=== PATIENT | female | born 1940 | race Caucasian/White ===

== ENCOUNTER 2020-01-24 08:51 | Inpatient (IN) | payer MEDICARE, MEDICAID, SELFPAY ==
[2020-01-24] VITALS (13 sets, daily range): BP systolic 93–166; BP diastolic 51–80; PULSE 47–69; RESP 12–23; TEMP 35.8–37.1; O2SAT 92–98; BMI 34.6
--- NOTE | ~2020-01-24 | XR_ITS ---
EXAMINATION: XR chest 2V DATE: 01/24/2020 09:58 INDICATION: Transient alteration of awareness. TECHNIQUE: Frontal and lateral views of the chest were obtained. COMPARISON: Chest 2 views 07/02/2019, CT abdomen and pelvis 06/18/2019 FINDINGS: There is chronic marked elevation of right hemidiaphragm. There is mild atelectasis at the lung bases. No pleural effusion or pneumothorax. The heart size is normal. There are multiple old hea led left rib fractures. There are changes of anterior and posterior fusion procedures in lumbar spine . There is focal kyphosis at thoracolumbar junction. IMPRESSION: 1. Mild atelectasis at the lung bases. 2. Chronic marked elevation of right hemidiaphragm. Reviewed, dictated and finalized at location A. WAY RADIO INSTALLER
--- NOTE | ~2020-01-24 | US_ITS ---
US renal BI 01/26/2020 13:30 Procedure: Realtime transabdominal ultrasound of the kidneys and bladder. Indication: Chronic UTI Comparison: Ultrasound dated 02/28/2008 Findings: Renal echotexture is normal bilaterally without hydronephrosis, contour deforming mass or r enal calculus. The right kidney measures 11.4 cm and left kidney measures 11.3 cm. Bladder wall is t hickened measuring 6.6 mm. Impression: 1: Bladder wall thickening, suspicious for cystitis. Correlate with urinalysis. Reviewed, dictated and finalized at location B. ATRICIAN Impression: 1: Bladder wall thickening, suspicious for cystitis. Correlate with urinalysis.
--- NOTE | ~2020-01-24 | MR_ITS ---
EXAMINATION: MR brain/brain stem wo/w con DATE: 01/26/2020 13:29 INDICATION: Aphasia. TECHNIQUE: Magnetic resonance imaging (MRI) of the brain and brainstem was performed without and with 17 mL MultiHance intravenous contrast. Sequences included sagittal and axial T1-weighted FSE, axial diffusion-weighted FS EPI, axial T2*-weighted GRE, axial T2-weighted FLAIR Propeller, and axial T2-we ighted Propeller. Postcontrast sequences included axial and coronal T1-weighted FSE. Apparent diffusi on coefficient (ADC) maps were created. COMPARISON: Brain MRI 07/26/2011, head CT 01/24/2020 FINDINGS: There are scattered areas of nonspecific increased T2-weighted signal intensity in the cere bral white matter. There is no intracranial hemorrhage, acute infarction, or abnormal intracranial ma ss lesion. The ventricles are normal in size. The paranasal sinuses are clear. There are likely wiley es of ocular lens replacement surgeries. The mastoid air cells are normal. IMPRESSION: 1. Mild nonspecific cerebral white matter disease, which likely represents chronic small vessel ische geri disease, worsened from 07/26/2011. Reviewed, dictated and finalized at location A. LINE GAUGER IMPRESSION: 1. Mild nonspecific cerebral white matter disease, which likely represents sales development manager jade small vessel ischemic disease, worsened from 07/26/2011.
--- NOTE | ~2020-01-24 | CT_ITS ---
EXAMINATION: CT brain wo con DATE: 01/24/2020 09:25 INDICATION: Altered mental status. TECHNIQUE: Computed tomography (CT) of the head was performed without intravenous contrast. The mA wa s adjusted according to patient size. Iterative reconstruction technique was employed. The dose-lengt h product was 681.00 mGy-cm. COMPARISON: Head CT 06/02/2019 FINDINGS: There are scattered areas of low attenuation in the cerebral white matter. There is no intr acranial hemorrhage, acute infarction, or abnormal intracranial mass lesion. The ventricles are roshni l in size. There is mild mucosal thickening in the ethmoid sinuses. There are likely changes of ocula r lens replacement surgeries. The mastoid air cells are normal. IMPRESSION: 1. Unchanged mild nonspecific cerebral white matter disease, which likely represents chronic small ve ssel ischemic disease. Reviewed, dictated and finalized at location A. ESTRUCTIVE TESTER IMPRESSION: 1. Unchanged mild nonspecific cerebral white matter disease, which likely repre sents chronic small vessel ischemic disease.
--- NOTE | 2020-01-24 09:00 | ECG_ITS ---
Measurements Intervals [place] Rate: 51 P: 75 NC: 189 QRS: -34 QRSD: 93 T: 14 QT: 498 QTc: 461 Interpretive Statements SINUS BRADYCARDIA LEFT AXIS DEVIATION LOW QRS VOLTAGE IN PRECORDIAL LEADS POOR R WAVE PROGRESSION, ANTERIOR LEADS INFERIOR INFARCT, AGE INDETERMINATE BASELINE WANDER- I, II, AVR, AVL, AVF, V1-V6 ABNORMAL ECG Electronically Signed On 01-24-2020 9:34:42 MILK HANDLER by Kashmir Don D.O.
[2020-01-24 09:15] LABS: Basophils Percent Auto 0.5 % (0.2-1.2); Eosinophils Absolute Auto 0.1 K/mm3 (0-0.3); Eosinophils Percent Auto 1.8 % (0-4.4); Hematocrit 39.3 % (37.0-47.0); Hemoglobin 12.1 g/dL (12.0-15.0); Immature Granulocyte Absolute 0.01 K/mm3 (0.00-0.031); Immature Granulocyte Percent A 0.2 % (0-0.5); Lymphocytes Absolute Auto 0.95 K/mm3 (0.9-3.2); Lymphocytes Percent Auto 15.5 % (18.3-44.2); Mean Corpuscular HGB Conc 30.8 g/dl (32-36); Mean Corpuscular Volume 97.3 fl (80-100); Mean Platelet Volume 12.5 fl (7.4-10.4); Monocytes Absolute Auto 0.6 K/mm3 (0.1-0.6); Monocytes Percent Auto 9.3 % (2.6-8.5); Neutrophils Absolute Auto 4.5 K/mm3 (1.3-6.7); Neutrophils Percent Auto 72.7 % (45.5-73.1); Platelet Count Result 103 k/mm3 (150-375); Red Blood Count 4.04 M/mm3 (4.2-5.4); Red Cell Distribution Width 13.2 % (11.5-14.5); White Blood Count 6.1 K/mm3 (4.5-10.0)
[2020-01-24] MEDS: SODIUM CHLORIDE 0.9% IV 500 ML 999 ML IV CONT (09:24)
[2020-01-24 09:38] LABS: Troponin I < 0.012 ng/mL (0.000-0.034)
[2020-01-24 09:40] LABS: Add Urine Microscopic? YES; Appearance Urine Cloudy (Clear); Bacteria Urine Trace /hpf; Bilirubin Urine Negative (Negative); Blood Urine Negative (Negative); Color Urine Yellow (Yellow); Glucose Urine UA Negative (Negative); Ketones Urine Trace mg/dL (Negative); Leukocyte Esterase Ur 2+ LEU/UL (Negative); Nitrate Urine Negative (Negative); Protein Urine Negative (Negative); RBC Urine 0-2 /hpf (0-2); Specific Grav Ur 1.012 (1.001-1.035); Squamous Epithelial Cell Urine Rare /hpf (Few); WBC Urine 51-75 /hpf
[2020-01-24 09:40] LABS: Lactic Acid Reflex 1.4 mmol/L (0.7-2.1)
[2020-01-24 09:44] LABS: Alanine Aminotransferase 7 U/L (4-35); Albumin Level 3.8 g/dL (3.5-5.1); Alkaline Phosphatase 85 U/L (38-126); Aspartate Amino Transferase 16 U/L (14-36); Bilirubin,Total 0.6 mg/dL (0.2-1.3); Blood Urea Nitrogen 30 mg/dL (7-17); Calcium 8.8 mg/dL (8.4-10.2); Carbon Dioxide 30 mmol/L (22-30); Chloride 105 mmol/L (98-107); Estimated Glomerular Filt Rate 54; Glucose 158 mg/dL (65-105); Potassium 5.1 mmol/L (3.4-5.0); Sodium 141 mmol/L (137-145)
--- NOTE | 2020-01-24 09:49 | ED.AMS ---
HPI - Altered Mental Status General Chief Complaint: Altered Mental Status Stated Complaint: not feeling well Time Seen by Provider: 01/24/20 09:02 Source: patient Mode of arrival: ambulatory Limitations: no limitations History of Present Illness HPI narrative: Patient is a 79-year-old female who presents to emergency department for evaluation of weakness from group home per EMS patient was lethargic and slumped over EMS was contacted patient on arrival to emergency department notes mild headache and weakness is alert and oriented to person place and reason for being in the emergency department denies recent illness or falls. Related Data Home Medications Medication Instructions Recorded Confirmed Unable to Obtain Home Medications 01/24/20 01/24/20 Allergies Allergy/AdvReac Type Severity Reaction Status Date / Time No Known Allergies Allergy Unverified 01/24/20 08:57 Review of Systems Review of Systems: All systems reviewed & are unremarkable except as noted in HPI and below PMFSH Past Medical History Medical History (Updated 01/24/20 @ 10:58 by Brady Joyce PA-C) Dementia Diabetes Family History Family History (Updated 08/31/11 @ 21:53 by DOCTOR UNKNOWN) Other Depression Diabetes mellitus Family history of elevated blood lipids Family history of mental disorder Hypertension Social History Social History Smoking status: Never smoker Alcohol intake: never Exam Narrative: Exam Narrative: GENERAL: Ill-appearing, well-nourished, and in no acute distress. HEAD: Normocephalic, atraumatic. EYES: PERRLA and EOMI. ENT: Nares clear, no rhinorrhea or epistaxis. Mucous membranes dry. Oropharynx without tonsillar hypertrophy exudate or other lesions. NECK: Supple. No adenopathy or masses. CHEST: Clear to auscultation. No respiratory distress. No wheezes rales or rhonchi HEART: Regular rate and rhythm. No murmur heard. Normal peripheral pulses. ABDOMEN: Soft, nontender, nondistended EXTREMITIES: Normal range of motion. 1+ edema to the lower extremities SKIN: Warm, dry, no rash. NEURO: Patient moves all extremities and follows commands. Alert and oriented person place and reason for being in the emergency department. Cranial nerves II through XII grossly intact PSYCH: Normal affect. Course Course Emergency Course: Patient aware of case findings treatment plan and diagnosis Consultations Consultation #1: Discussed case with hospitalist who is agreed to accept the patient Date: 01/24/20 Vital Signs Vital signs: Vital Signs Temperature 97 F L 01/24/20 08:50 Pulse Rate 52 L 01/24/20 08:50 Respiratory Rate 23 H 01/24/20 08:50 Blood Pressure 93/51 L 01/24/20 08:50 Pulse Oximetry 95 01/24/20 08:50 Temperature 97 F L 01/24/20 08:50 Pulse Rate 54 L 01/24/20 09:25 Respiratory Rate 18 01/24/20 09:25 Blood Pressure 111/53 L 01/24/20 09:25 Pulse Oximetry 94 01/24/20 09:25 MDM - Altered Mental Status MDM Narrative Medical decision making narrative: Patient will be placed in hospital with likely dehydration and urinary tract infection as the etiology of her symptoms resting comfortably in the room in no distress was hydrated Lab Data Result diagrams: 01/24/20 09:10 01/24/20 09:10 Labs: Lab Results 01/24/20 01/24/20 01/24/20 Range/Units 09:10 09:10 09:10 WBC 6.1 (4.5-10.0) K/mm3 RBC 4.04 L (4.2-5.4) M/mm3 Hgb 12.1 (12.0-15.0) g/dL Hct 39.3 (37.0-47.0) % MCV 97.3 (80-100) fl MCH 30.0 (26-34) pg MCHC 30.8 L (32-36) g/dl RDW 13.2 (11.5-14.5) % Plt Count 103 L (150-375) k/mm3 MPV 12.5 H (7.4-10.4) fl Immature Gran % (Auto) 0.2 (0-0.5) % Neut % (Auto) 72.7 (45.5-73.1) % Lymph % (Auto) 15.5 L (18.3-44.2) % [place] % (Auto) 9.3 H (2.6-8.5) % Eos % (Auto) 1.8 (0-4.4) % Baso % (Auto) 0.5 (0.2
[2020-01-24] MEDS: SODIUM CHLORIDE 0.9% IV 1,000 ML 999 ML IV CONT (10:07)
--- NOTE | 2020-01-24 12:27 | ADMGEN ---
This patient, Christine Munoz, was admitted to Medical Room 344-01. Patient oriented to hospital policies and general routines including ID bracelet, bed and alarms, visiting hours, pain management, procedures, bathroom and other care routines, personal items, smoking policy, room service/diet, and visiting hours. Valuables list has been completed. Information on how to activate the Rapid Response Team has been discussed. Patient are encouraged to report perceived risks to care and to ask questions if they do not understand what they are told or what they should do.
[2020-01-24 12:55] LABS: Glucose Point of Care 113 (65-105)
[2020-01-24] MEDS: LACTATED RINGERS 1,000 ML 125 ML IV CONT ×2 (13:31→22:31)
[2020-01-24 17:02] LABS: Glucose Point of Care 175 (65-105)
--- NOTE | 2020-01-24 21:04 | PM.IMHP ---
H&P: HPI History of Present Illness Chief complaint: Dehydration/urinary tract infection Narrative: Christine Munoz is a 79 year old female who has had multiple UTIs. She has drug-resistant UTIs. She had VRE this past admission which was June 18, 2019. The patient became very weak today at [facility]. This is where she resides. She became month or ache take and slumped over. EMS was activated. Patient was complaining of a headache and weakness. She is alert orientated to person and place when she came to the emergency room. Patient was found to have UTI again and was placed on Primaxin. She sees Dr. Haynes as her urologist for these frequent UTIs. The patient is currently alert and orientated x3. Date of service is 01/24/2020 patient's blood sugar was also 54 initially so possibly her blood pressure dropped low causing her to have episode where she became lethargic. Review of Systems Review of Systems: Narrative: Patient is complaining of lower back pain. All systems reviewed & are unremarkable except as noted in HPI and below Constitutional: Constitutional: Reports as per HPI and Reports no additional constitutional complaints Eyes: Eyes: Reports as per HPI and Reports no additional eye complaints ENT: Reports system reviewed and no additional complaints, except as documented and Reports Normal hearing present Cardiovascular: Cardiovascular: Reports no additional cardiovascular complaints Respiratory: Respiratory: Reports no additional respiratory complaints and Reports no additional respiratory complaints Gastrointestinal: Gastrointestinal: Reports as per HPI and Reports no additional gastrointestinal complaints Musculoskeletal: Musculoskeletal: Reports no additional musculoskeletal complaints Integumentary/Breasts: Skin/Breast: Reports system reviewed and no additional complaints, except as docu and Reports as per HPI Neurologic: Reports system reviewed and no additional complaints, except as documented, Reports as per HPI and Reports Normal hearing present Psychiatric: Psychiatric: Reports no additional psychiatric complaints and Reports as per HPI Endocrine: Endocrine: Reports no additional endocrine complaints Hematologic/Lymphatic: Hematologic/Lymphatic: Reports no additional hematologic/lymphatic complaints Allergic/Immunologic: Allergic/Immunologic: Reports no additional allergic/immunologic complaints PMFSH Past Medical History Medical History (Updated 01/24/20 @ 21:30 by Michelle Salcedo NP) Constipation Degenerative disc disease Dementia Depression Diabetes Fibromyalgia HTN (hypertension) with goal to be determined Hyperlipidemia Macular degeneration Mitral valve prolapse Neuropathy Feet and hands Osteoporosis Parkinsons Surgical History Surgical History (Updated 01/24/20 @ 21:16 by Michelle Salcedo NP) H/O cardiac catheterization December 1999 reported as clear H/O hemorrhoidectomy H/O rectocele repair 2002 H/O: hysterectomy History of back surgery 5 surgeries from 02/11/1978 83. History of bilateral knee replacement History of bladder suspension procedure History of tonsillectomy Family History Family History (Updated 01/24/20 @ 21:18 by Michelle Salcedo NP) Mother Hypertension Diabetes mellitus Sibling Diabetes mellitus Renal failure Father Lung cancer Sibling Suicide Other Depression Family history of elevated blood lipids Family history of mental disorder Social History Social History (Updated 01/24/20 @ 21:19 by Michelle Salcedo NP) Social History: She resides at [facility]. 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 She is not qualified so far. She is estranged from her 3 children. 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 No alcohol no illicit drugs. Is . Lifelong nonsmoker. Smoking status: Never smoker Alcohol intake: never Substance us
[2020-01-24 22:30] LABS: Glucose Point of Care 239 (65-105)
[2020-01-24] MEDS: CLONAZEPAM 0.5 MG TAB 1 MG PO (22:37)
[2020-01-24] MEDS: GABAPENTIN 400 MG CAPSULE 800 MG PO (22:38)
[2020-01-24] MEDS: QUEtiapine FUMARATE 25 MG TABLET 50 MG PO (22:38)
[2020-01-24] MEDS: TIZANIDINE HCL 4 MG TABLET PO (22:38)
[2020-01-24] MEDS: QUEtiapine FUMARATE 100 MG TABLET 200 MG PO (22:38)
[2020-01-24] MEDS: INSULIN GLARGINE (*BKC) 100 UNITS/ML 60 UNITS SUB-Q (22:39)
[2020-01-25] VITALS (9 sets, daily range): BP systolic 130–155; BP diastolic 50–70; PULSE 56–65; RESP 14–16; TEMP 36.3–37.1; O2SAT 94–95
[2020-01-25] MEDS: FAMOTIDINE 20 MG/2 ML VIAL IV PUSH ×2 (00:24→08:29)
[2020-01-25 06:14] LABS: Basophils Percent Auto 0.2 % (0.2-1.2); Eosinophils Absolute Auto 0.1 K/mm3 (0-0.3); Eosinophils Percent Auto 1.6 % (0-4.4); Hematocrit 35.3 % (37.0-47.0); Hemoglobin 10.8 g/dL (12.0-15.0); Immature Granulocyte Absolute 0.02 K/mm3 (0.00-0.031); Immature Granulocyte Percent A 0.5 % (0-0.5); Lymphocytes Absolute Auto 0.74 K/mm3 (0.9-3.2); Lymphocytes Percent Auto 16.8 % (18.3-44.2); Mean Corpuscular HGB Conc 30.6 g/dl (32-36); Mean Corpuscular Hemoglobin 29.8 pg (26-34); Mean Corpuscular Volume 97.5 fl (80-100); Mean Platelet Volume 12.6 fl (7.4-10.4); Monocytes Absolute Auto 0.5 K/mm3 (0.1-0.6); Monocytes Percent Auto 11.6 % (2.6-8.5); Neutrophils Absolute Auto 3.1 K/mm3 (1.3-6.7); Neutrophils Percent Auto 69.3 % (45.5-73.1); Platelet Count Result 87 k/mm3 (150-375); Red Blood Count 3.62 M/mm3 (4.2-5.4); Red Cell Distribution Width 13.2 % (11.5-14.5); White Blood Count 4.4 K/mm3 (4.5-10.0)
[2020-01-25 06:31] LABS: Alanine Aminotransferase 11 U/L (4-35); Albumin Level 3.1 g/dL (3.5-5.1); Alkaline Phosphatase 67 U/L (38-126); Aspartate Amino Transferase 13 U/L (14-36); Bilirubin,Total 0.5 mg/dL (0.2-1.3); Blood Urea Nitrogen 21 mg/dL (7-17); Calcium 8.2 mg/dL (8.4-10.2); Carbon Dioxide 30 mmol/L (22-30); Chloride 108 mmol/L (98-107); Estimated CRCL calculation 44 ml/min; Estimated Glomerular Filt Rate 54; Glucose 117 mg/dL (65-105); Magnesium 1.6 mg/dL (1.6-2.3); Potassium 4.2 mmol/L (3.4-5.0); Sodium 142 mmol/L (137-145)
[2020-01-25 07:45] LABS: Glucose Point of Care 115 (65-105)
[2020-01-25] MEDS: LACTATED RINGERS 1,000 ML 125 ML IV CONT (08:28)
[2020-01-25] MEDS: CHOLECALCIFEROL 1,000 UNIT TABLET 2000 UNITS PO (08:29)
[2020-01-25] MEDS: DULOXETINE 60 MG CAPSULE.DR PO ×2 (08:29→16:10)
[2020-01-25] MEDS: CLONAZEPAM 0.5 MG TAB PO ×2 (08:29→16:13)
[2020-01-25] MEDS: ASPIRIN 81 MG CHEWABLE TABLET PO (08:29)
[2020-01-25] MEDS: DULOXETINE HCL 30 MG CAPSULE.DR PO (08:29)
[2020-01-25] MEDS: RIVASTIGMINE TARTRATE 1.5 MG CAPSULE 4.5 MG PO ×2 (08:29→16:12)
[2020-01-25] MEDS: hydroCHLOROthiazide 12.5 MG CAPSULE PO (08:30)
[2020-01-25] MEDS: FUROSEMIDE 20 MG TABLET PO (08:30)
[2020-01-25] MEDS: POTASSIUM CHLORIDE 10 MEQ TABLET.ER PO (08:30)
[2020-01-25] MEDS: LUBIPROSTONE 24 MCG CAPSULE PO ×2 (08:30→16:11)
[2020-01-25] MEDS: PANTOPRAZOLE 40 MG TABLET PO ×2 (08:30→16:11)
[2020-01-25] MEDS: MIRABEGRON 25 MG ER TABLET PO (08:30)
[2020-01-25] MEDS: POLYSACCHARIDE IRON COMPLEX 150 MG CAPSULE PO (08:30)
[2020-01-25] MEDS: lisinopriL 10 MG TABLET PO (08:30)
[2020-01-25] MEDS: CARBIDOPA/LEVODOPA 25/100 MG TABLET 3 TABLET PO ×4 (08:31→20:02)
[2020-01-25] MEDS: GABAPENTIN 300 MG CAPSULE PO ×2 (08:31→16:10)
[2020-01-25] MEDS: carvediloL 12.5 MG TABLET PO ×2 (08:31→16:11)
[2020-01-25 08:39] LABS: Hemoglobin A1C 7.4 % (<5.7)
--- NOTE | 2020-01-25 11:05 | PHAR ---
Home medication identified. Nuplazid 34mg capsule and returned to nurse 3 medical unit
[2020-01-25 12:14] LABS: Glucose Point of Care 90 (65-105)
[2020-01-25 16:17] LABS: Glucose Point of Care 118 (65-105)
--- NOTE | 2020-01-25 16:23 | P.PNIM_ITS ---
Progress Note: A&P Assessment and Plan (1) Altered mental status: Code(s): R41.82 - Altered mental status, unspecified Status: Acute Assessment and Plan: * The pt had an episode of weakness, lethargy, and was slumped over at the senior care yesterday which prompted activation of EMS * She is now alert and oriented x3 with no focal deficits * AMS is suspected to be due to UTI, dehydration, and hypoglycemia as blood sugar was reported to be in the 50s which is superimposed on baseline Parkinson's dementia * CT head wo contrast in the ED revealed unchanged, mild nonspecific cerebral white matter disease, suggestive of chronic small vessel ischemic disease without evidence of hemorrhage or ischemia * The pt endorses that she felt like she had an episode of what she describes as expressive aphasia immediately prior to the episode of lethargy. Will order MRI brain w and wo contrast. (2) Frequent UTI: Code(s): N39.0 - Urinary tract infection, site not specified Status: Acute Assessment and Plan: * The pt has a hx of recurrent UTIs with hx of VRE 06/20/19 * She is established with Dr. Haynes, urologist, who was consulted. Appreciate recommendations. * Urine cultures are pending * Pt is on imipenem/cilastatin, will de-escalate pending cultures as appropriate (3) Diabetes: Code(s): E11.9 - Type 2 diabetes mellitus without complications Status: Chronic Assessment and Plan: * Blood sugars reviewed and at target * ACHS * Continue glargine, will reduce by 20% * Continue SSI * Will continue to monitor (4) Parkinsons: Code(s): G20 - Parkinson's disease Status: Chronic Assessment and Plan: * Continue carbidopa-levodopa * Continue rivastigmine * Pimavanserin is non-formulary, will see if she can have this brought in * Continue nuplazid, pt was able to have her friend bring this in since it is non-formulary (5) Acute dehydration: Code(s): E86.0 - Dehydration Status: Acute Assessment and Plan: * Pt was dehydrated at presentation and received IV hydration * Pt is eating and drinking well * Will discontinue fluids and continue to monitor (6) Fibromyalgia: Code(s): M79.7 - Fibromyalgia Status: Chronic Assessment and Plan: * Continue with Zanaflex, [place], gabapentin, and tylenol (7) Depression: Code(s): F32.9 - Major depressive disorder, single episode, unspecified Status: Chronic Assessment and Plan: * The patient's mood is stable * Continue cymbalta and seroquel (8) Neuropathy: Code(s): G62.9 - Polyneuropathy, unspecified Status: Chronic Assessment and Plan: * Continue gabapentin (9) HTN (hypertension) with goal to be determined: Code(s): I10 - Essential (primary) hypertension Status: Chronic Assessment and Plan: * BP elevated overnight but has improved today * Continue lisinopril and hydrochlorothiazide * Continue to monitor (10) Diarrhea: Code(s): R19.7 - Diarrhea, unspecified Status: Acute Assessment and Plan: * The pt reports loose BM yesterday but denies BM today. She endorses a strong odor to the stool. She denies hematocheiza, melena, vomiting, nausea, and abdominal pain. * She reports that she was on antibiotics in the past month * She reports a hx of chronic diarrhea and is on loperamid
--- NOTE | 2020-01-25 16:23 | PM.IMPN ---
Progress Note: A&P Assessment and Plan (1) Altered mental status: Code(s): R41.82 - Altered mental status, unspecified Status: Acute Assessment and Plan: The pt had an episode of weakness, lethargy, and was slumped over at the half-way yesterday which prompted activation of EMS She is now alert and oriented x3 with no focal deficits AMS is suspected to be due to UTI, dehydration, and hypoglycemia as blood sugar was reported to be in the 50s which is superimposed on baseline Parkinson's dementia CT head wo contrast in the ED revealed unchanged, mild nonspecific cerebral white matter disease, suggestive of chronic small vessel ischemic disease without evidence of hemorrhage or ischemia The pt endorses that she felt like she had an episode of what she describes as expressive aphasia immediately prior to the episode of lethargy. Will order MRI brain w and wo contrast. (2) Frequent UTI: Code(s): N39.0 - Urinary tract infection, site not specified Status: Acute Assessment and Plan: The pt has a hx of recurrent UTIs with hx of VRE 06/20/19 She is established with Dr. Haynes, urologist, who was consulted. Appreciate recommendations. Urine cultures are pending Pt is on imipenem/cilastatin, will de-escalate pending cultures as appropriate (3) Diabetes: Code(s): E11.9 - Type 2 diabetes mellitus without complications Status: Chronic Assessment and Plan: Blood sugars reviewed and at target ACHS Continue glargine, will reduce by 20% Continue SSI Will continue to monitor (4) Parkinsons: Code(s): G20 - Parkinson's disease Status: Chronic Assessment and Plan: Continue carbidopa-levodopa Continue rivastigmine Pimavanserin is non-formulary, will see if she can have this brought in Continue nuplazid, pt was able to have her friend bring this in since it is non-formulary (5) Acute dehydration: Code(s): E86.0 - Dehydration Status: Acute Assessment and Plan: Pt was dehydrated at presentation and received IV hydration Pt is eating and drinking well Will discontinue fluids and continue to monitor (6) Fibromyalgia: Code(s): M79.7 - Fibromyalgia Status: Chronic Assessment and Plan: Continue with Zanaflex, [place], gabapentin, and tylenol (7) Depression: Code(s): F32.9 - Major depressive disorder, single episode, unspecified Status: Chronic Assessment and Plan: The patient's mood is stable Continue cymbalta and seroquel (8) Neuropathy: Code(s): G62.9 - Polyneuropathy, unspecified Status: Chronic Assessment and Plan: Continue gabapentin (9) HTN (hypertension) with goal to be determined: Code(s): I10 - Essential (primary) hypertension Status: Chronic Assessment and Plan: BP elevated overnight but has improved today Continue lisinopril and hydrochlorothiazide Continue to monitor (10) Diarrhea: Code(s): R19.7 - Diarrhea, unspecified Status: Acute Assessment and Plan: The pt reports loose BM yesterday but denies BM today. She endorses a strong odor to the stool. She denies hematocheiza, melena, vomiting, nausea, and abdominal pain. She reports that she was on antibiotics in the past month She reports a hx of chronic diarrhea and is on loperamide PRN and lactobacillus Will obtain stool cultures due to concern for malodor to stool Subjective Date/time seen: 01/25/20 16:23 Interval history: Mrs. Munoz is seen and examined at bedside. She reports that she is feeling much better today. She reports a 1 week hx of diarrhea with a bad odor. She denies hematochezia and melena. Her last BM was Sunday. She reports recent antibiotic therapy within the past month. She denies BM today. She also reports hx of dysuria for approximately 2 months with increased urinary
[2020-01-25] MEDS: CLONAZEPAM 0.5 MG TAB 1 MG PO (20:01)
[2020-01-25] MEDS: QUEtiapine FUMARATE 25 MG TABLET 50 MG PO (20:01)
[2020-01-25] MEDS: GABAPENTIN 400 MG CAPSULE 800 MG PO (20:02)
[2020-01-25] MEDS: QUEtiapine FUMARATE 100 MG TABLET 200 MG PO (20:02)
[2020-01-25] MEDS: INSULIN GLARGINE (*BKC) 100 UNITS/ML 48 UNITS SUB-Q (20:11)
[2020-01-25] MEDS: TIZANIDINE HCL 4 MG TABLET PO (20:14)
[2020-01-25 22:27] LABS: Glucose Point of Care 149 (65-105)
[2020-01-26] VITALS (9 sets, daily range): BP systolic 127–153; BP diastolic 58–73; PULSE 50–64; RESP 16–188; TEMP 36.1–36.7; O2SAT 92–100
[2020-01-26 05:47] LABS: Basophils Percent Auto 0.2 % (0.2-1.2); Eosinophils Absolute Auto 0.1 K/mm3 (0-0.3); Eosinophils Percent Auto 3.2 % (0-4.4); Hematocrit 35.4 % (37.0-47.0); Hemoglobin 11.1 g/dL (12.0-15.0); Lymphocytes Absolute Auto 0.68 K/mm3 (0.9-3.2); Lymphocytes Percent Auto 16.9 % (18.3-44.2); Mean Corpuscular HGB Conc 31.4 g/dl (32-36); Mean Corpuscular Hemoglobin 30.1 pg (26-34); Mean Corpuscular Volume 95.9 fl (80-100); Monocytes Absolute Auto 0.6 K/mm3 (0.1-0.6); Monocytes Percent Auto 14.1 % (2.6-8.5); Neutrophils Absolute Auto 2.6 K/mm3 (1.3-6.7); Neutrophils Percent Auto 65.6 % (45.5-73.1); Platelet Count Result 88 k/mm3 (150-375); Red Blood Count 3.69 M/mm3 (4.2-5.4); Red Cell Distribution Width 13.1 % (11.5-14.5)
[2020-01-26 05:59] LABS: Blood Urea Nitrogen 18 mg/dL (7-17); Calcium 8.3 mg/dL (8.4-10.2); Carbon Dioxide 30 mmol/L (22-30); Chloride 104 mmol/L (98-107); Estimated CRCL calculation 49 ml/min; Estimated Glomerular Filt Rate > 60; Glucose 119 mg/dL (65-105); Magnesium 1.6 mg/dL (1.6-2.3); Phosphorus 3.9 mg/dL (2.5-4.5); Potassium 3.8 mmol/L (3.4-5.0); Sodium 140 mmol/L (137-145)
--- NOTE | 2020-01-26 08:53 | WPDURCON ---
Assessment and Plan Assessment and plan (1) Frequent UTI: Code(s): N39.0 - Urinary tract infection, site not specified Status: Acute Assessment and Plan: Will obtain a GILBERT to rule out any anatomical abnormalities contributing. (2) Urinary tract infection: Code(s): N39.0 - Urinary tract infection, site not specified Status: Acute Assessment and Plan: Urine culture pending. Continue IV antibiotics, treat according to culture results. (3) Urinary hesitancy: Code(s): R39.11 - Hesitancy of micturition Status: Acute Assessment and Plan: Bladder scan post void to assess PVR and ensure urinary retention is not contributing. Urology Consult Note HPI Date Seen: 01/26/20 Requesting Physician: Kb Freeman MD Primary Care Provider: PHYSICIAN NOT ON STAFF Consult Narrative Narrative: Christine Munoz is a 79 year old female who presented to the ER via EMS on 01/24/2020 for lethargy, weakness and was found to be slumped over in her chair the longterm where she resides. She is a longtime patient of Dr. Haynes's and myself. She is seen for chronic UTI's and vaginal atrophy. She has had a cystoscopy in the office on 08/19/2018 which was normal. The most recent CT scan without contrast was done on 06/18/19 showing moderate bladder distention. She was previously on prophylactic antibiotics, but has developed multi drug resistance on many of her recent cultures, therefore prophylaxsis was stopped. She is treated for each infection according to her cultures. She describes dysuria for the past 7-8 days and urinary retention, stating she could not go to the bathroom for >15 hours. She denies fever, chills, nausea or vomiting. She also denies abdominal, flank pain or hematuria. WBC is low at 4.0, creatinine is 0.90 and urine culture is pending, UA suggests a potential infection. Review of Systems Cardiovascular: Cardiovascular: Denies chest pain Respiratory: Respiratory: Reports no additional respiratory complaints Gastrointestinal: Gastrointestinal: Denies abdominal pain, Denies nausea and Denies vomiting Genitourinary: Genitourinary: Denies hematuria, Reports dysuria, Denies flank pain and Reports urinary hesitancy PMF Past Medical History Medical History Constipation Degenerative disc disease Dementia Depression Diabetes Fibromyalgia HTN (hypertension) with goal to be determined Hyperlipidemia Macular degeneration Mitral valve prolapse Neuropathy Feet and hands Osteoporosis Parkinsons Surgical History Surgical History H/O cardiac catheterization December 1999 reported as clear H/O hemorrhoidectomy H/O rectocele repair 2002 H/O: hysterectomy History of back surgery 5 surgeries from 02/11/1978 83. History of bilateral knee replacement History of bladder suspension procedure History of tonsillectomy Family History Family History Mother Hypertension Diabetes mellitus Sibling Diabetes mellitus Renal failure Father Lung cancer Sibling Suicide Other Depression Family history of elevated blood lipids Family history of mental disorder Social History Social History Social History: She resides at [facility]. 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 She is not qualified so far. She is estranged from her 3 children. 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 No alcohol no illicit drugs. Is . Lifelong nonsmoker. Smoking status: Never smoker Alcohol intake: never Substance use: never Occupation/Education: retired Gender identity (if verbalized by the patient): Female Spiritual care concerns: No Agree to blood products: Yes Meds H
[2020-01-26 09:09] LABS: Glucose Point of Care 124 (65-105)
[2020-01-26] MEDS: CARBIDOPA/LEVODOPA 25/100 MG TABLET 3 TABLET PO ×4 (09:14→20:20)
[2020-01-26] MEDS: lisinopriL 10 MG TABLET PO (09:15)
[2020-01-26] MEDS: hydroCHLOROthiazide 12.5 MG CAPSULE PO (09:15)
[2020-01-26] MEDS: LUBIPROSTONE 24 MCG CAPSULE PO ×2 (09:15→17:53)
[2020-01-26] MEDS: RIVASTIGMINE TARTRATE 1.5 MG CAPSULE 4.5 MG PO ×2 (09:15→17:51)
[2020-01-26] MEDS: POLYSACCHARIDE IRON COMPLEX 150 MG CAPSULE PO (09:15)
[2020-01-26] MEDS: MIRABEGRON 25 MG ER TABLET PO (09:16)
[2020-01-26] MEDS: POTASSIUM CHLORIDE 10 MEQ TABLET.ER PO (09:16)
[2020-01-26] MEDS: GABAPENTIN 300 MG CAPSULE PO ×2 (09:16→17:54)
[2020-01-26] MEDS: FUROSEMIDE 20 MG TABLET PO (09:16)
[2020-01-26] MEDS: DULOXETINE 60 MG CAPSULE.DR PO ×2 (09:16→17:52)
[2020-01-26] MEDS: ASPIRIN 81 MG CHEWABLE TABLET PO (09:17)
[2020-01-26] MEDS: PANTOPRAZOLE 40 MG TABLET PO ×2 (09:17→17:52)
[2020-01-26] MEDS: DULOXETINE HCL 30 MG CAPSULE.DR PO (09:17)
[2020-01-26] MEDS: CHOLECALCIFEROL 1,000 UNIT TABLET 2000 UNITS PO (09:17)
[2020-01-26] MEDS: carvediloL 12.5 MG TABLET PO ×2 (09:18→17:53)
[2020-01-26] MEDS: CLONAZEPAM 0.5 MG TAB PO ×2 (09:20→17:55)
--- NOTE | 2020-01-26 13:06 | PCOTNOTE ---
OT evaluation attempted. Patient down for MRI and testing. Will attempt OT evaluation at later time.
[2020-01-26 13:47] LABS: Glucose Point of Care 107 (65-105)
[2020-01-26] MEDS: MUPIROCIN 2% OINT 22 GM TUBE 1 APPLIC EACH NARE ×2 (14:02→20:22)
[2020-01-26] MEDS: IMIPENEM/CILASTATIN SODIUM 500 MG in DEXTROSE 5% 100 ML 150 MG IVPB ×2 (14:59→22:05)
--- NOTE | 2020-01-26 16:42 | P.PNIM_ITS ---
Progress Note: A&P Assessment and Plan (1) Urinary retention: Code(s): R33.9 - Retention of urine, unspecified Status: Acute Assessment and Plan: * Bladder scan showed 939cc * Suspect that retention is due to UTI * Will proceed with cedillo placement for 3-5 days and a voiding trial to follow (2) Altered mental status: Code(s): R41.82 - Altered mental status, unspecified Status: Resolved Assessment and Plan: * The pt had an episode of weakness, lethargy, and was slumped over at the [facility] which prompted activation of EMS * She is now alert and oriented x3 with no focal deficits * AMS is suspected to be due to UTI, dehydration, and hypoglycemia as blood sugar was reported to be in the 50s which is superimposed on baseline Parkinson's dementia * CT head wo contrast in the ED revealed unchanged, mild nonspecific cerebral white matter disease, suggestive of chronic small vessel ischemic disease without evidence of hemorrhage or ischemia * The pt endorses that she felt like she had an episode of what she describes as expressive aphasia immediately prior to the episode of lethargy. * MRI brain without evidence of acute infarct, hemorrhage, or intracranial mass lesion. She has mild nonspecific cerebral white matter disease, likely financial services representative of chronic small vessel ischemic disease. 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 Haynes, urologist, who was consulted. * Pt is on imipenem/cilastatin, will de-escalate pending cultures as appropriate * Urine cultures are still pending.There is no preliminary result available. Will call [employer] * Spoke with [employer] who said that it appears that there are two different gram negative rods. Preliminary results should be available tomorrow. * Renal ultrasound without evidence of hydronephrosis, mass, or calculus * Appreciate urology input (4) Diabetes: Code(s): E11.9 - Type 2 diabetes mellitus without complications Status: Chronic Assessment and Plan: * Blood sugars reviewed and at target * ACHS * Continue glargine, will reduce by 20% * Continue SSI * Will continue to monitor (5) Parkinsons: Code(s): G20 - Parkinson's disease Status: Chronic Assessment and Plan: * Continue carbidopa-levodopa * Continue rivastigmine * Pimavanserin is non-formulary, we will see if she can have this brought in by her friend Radha * Continue nuplazid, pt was able to have her friend bring this in since it is non-formulary (6) Acute dehydration: Code(s): E86.0 - Dehydration Status: Resolved Assessment and Plan: * Pt was dehydrated at presentation and received IV hydration * Pt is eating and drinking well * Will discontinue fluids and continue to monitor (7) Fibromyalgia: Code(s): M79.7 - Fibromyalgia Status: Chronic Assessment and Plan: * Continue with Zanaflex, [place], gabapentin, and tylenol (8) Depression: Code(s): F32.9 - Major depressive disorder, single episode, unspecified Status: Chronic Assessment and Plan: * The patient's mood is stable * Continue cymbalta and seroquel (9) Neurop
--- NOTE | 2020-01-26 16:42 | PM.IMPN ---
Progress Note: A&P Assessment and Plan (1) Urinary retention: Code(s): R33.9 - Retention of urine, unspecified Status: Acute Assessment and Plan: Bladder scan showed 939cc Suspect that retention is due to UTI Will proceed with cedillo placement for 3-5 days and a voiding trial to follow (2) Altered mental status: Code(s): R41.82 - Altered mental status, unspecified Status: Resolved Assessment and Plan: The pt had an episode of weakness, lethargy, and [facility] which [facility] of [facility] She is now alert and oriented x3 with no focal deficits AMS is suspected to be due to UTI, dehydration, and hypoglycemia as blood sugar was reported to be in the 50s which is superimposed on baseline Parkinson's dementia CT head wo contrast in the ED revealed unchanged, mild nonspecific cerebral white matter disease, suggestive of chronic small vessel ischemic disease without evidence of hemorrhage or ischemia The pt endorses that she felt like she had an episode of what she describes as expressive aphasia immediately prior to the episode of lethargy. MRI brain without evidence of acute infarct, hemorrhage, or intracranial mass lesion. She has mild nonspecific cerebral white matter disease, likely sales representative health insurance of chronic small vessel ischemic disease. 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 Haynes, urologist, who was consulted. Pt is on imipenem/cilastatin, will de-escalate pending cultures as appropriate Urine cultures are still pending.There is no preliminary result available. Will call [employer] Spoke with [employer] who said that it appears that there are two different gram negative rods. Preliminary results should be available tomorrow. Renal ultrasound without evidence of hydronephrosis, mass, or calculus Appreciate urology input (4) Diabetes: Code(s): E11.9 - Type 2 diabetes mellitus without complications Status: Chronic Assessment and Plan: Blood sugars reviewed and at target ACHS Continue glargine, will reduce by 20% Continue SSI Will continue to monitor (5) Parkinsons: Code(s): G20 - Parkinson's disease Status: Chronic Assessment and Plan: Continue carbidopa-levodopa Continue rivastigmine Pimavanserin is non-formulary, we will see if she can have this brought in by her friend Radha Continue nuplazid, pt was able to have her friend bring this in since it is non-formulary (6) Acute dehydration: Code(s): E86.0 - Dehydration Status: Resolved Assessment and Plan: Pt was dehydrated at presentation and received IV hydration Pt is eating and drinking well Will discontinue fluids and continue to monitor (7) Fibromyalgia: Code(s): M79.7 - Fibromyalgia Status: Chronic Assessment and Plan: Continue with Zanaflex, [place], gabapentin, and tylenol (8) Depression: Code(s): F32.9 - Major depressive disorder, single episode, unspecified Status: Chronic Assessment and Plan: The patient's mood is stable Continue cymbalta and seroquel (9) Neuropathy: Code(s): G62.9 - Polyneuropathy, unspecified Status: Chronic Assessment and Plan: Continue gabapentin (10) HTN (hypertension) with goal to be determined: Code(s): I10 - Essential (primary) hypertension Status: Chronic Assessment and Plan: BP elevated overnight but has improved today Continue lisinopril-hydrochlorothiazide Continue to monitor (11) Diarrhea: Code(s): R19.7 - Diarrhea, unspecified Status: Acute Asse
[2020-01-26 19:46] LABS: Glucose Point of Care 191 (65-105)
[2020-01-26] MEDS: QUEtiapine FUMARATE 100 MG TABLET 200 MG PO (20:19)
[2020-01-26] MEDS: CLONAZEPAM 0.5 MG TAB 1 MG PO (20:19)
[2020-01-26] MEDS: GABAPENTIN 400 MG CAPSULE 800 MG PO (20:19)
[2020-01-26] MEDS: TIZANIDINE HCL 4 MG TABLET PO (20:20)
[2020-01-26] MEDS: QUEtiapine FUMARATE 25 MG TABLET 50 MG PO (20:21)
[2020-01-26] MEDS: ESTRADIOL VAGINAL CREAM 42.5 GM 1 APPLIC VAGINAL (20:22)
[2020-01-26] MEDS: INSULIN GLARGINE (*BKC) 100 UNITS/ML 48 UNITS SUB-Q (20:32)
[2020-01-26 21:57] LABS: Glucose Point of Care 148 (65-105)
[2020-01-27] VITALS (9 sets, daily range): BP systolic 126–152; BP diastolic 40–78; PULSE 58–82; RESP 16–18; TEMP 36.3–36.6; O2SAT 92–95
[2020-01-27 05:10] LABS: Basophils Percent Auto 0.4 % (0.2-1.2); Eosinophils Absolute Auto 0.2 K/mm3 (0-0.3); Eosinophils Percent Auto 3.3 % (0-4.4); Hematocrit 35.5 % (37.0-47.0); Hemoglobin 11.1 g/dL (12.0-15.0); Immature Granulocyte Absolute 0.02 K/mm3 (0.00-0.031); Immature Granulocyte Percent A 0.4 % (0-0.5); Immature Platelet Fraction Pct 5.5 % (0.9-11.2); Lymphocytes Absolute Auto 0.96 K/mm3 (0.9-3.2); Lymphocytes Percent Auto 20.1 % (18.3-44.2); Mean Corpuscular HGB Conc 31.3 g/dl (32-36); Mean Corpuscular Hemoglobin 29.8 pg (26-34); Mean Corpuscular Volume 95.2 fl (80-100); Mean Platelet Volume 11.6 fl (7.4-10.4); Monocytes Absolute Auto 0.5 K/mm3 (0.1-0.6); Monocytes Percent Auto 11.3 % (2.6-8.5); Neutrophils Absolute Auto 3.1 K/mm3 (1.3-6.7); Neutrophils Percent Auto 64.5 % (45.5-73.1); Platelet Count Result 85 k/mm3 (150-375); Red Blood Count 3.73 M/mm3 (4.2-5.4); White Blood Count 4.8 K/mm3 (4.5-10.0)
[2020-01-27] MEDS: IMIPENEM/CILASTATIN SODIUM 500 MG in DEXTROSE 5% 100 ML 150 MG IVPB ×3 (05:13→21:33)
[2020-01-27 05:26] LABS: Blood Urea Nitrogen 19 mg/dL (7-17); Calcium 7.9 mg/dL (8.4-10.2); Carbon Dioxide 33 mmol/L (22-30); Chloride 96 mmol/L (98-107); Estimated CRCL calculation 37 ml/min; Estimated Glomerular Filt Rate 44; Glucose 173 mg/dL (65-105); Potassium 3.9 mmol/L (3.4-5.0); Sodium 138 mmol/L (137-145)
[2020-01-27 07:53] LABS: Glucose Point of Care 236 (65-105)
--- NOTE | 2020-01-27 08:16 | PCOTNOTE ---
Attempted OT evaluation. Patient has low BP at this time. Will continue to attempt. RN aware.
--- NOTE | 2020-01-27 09:01 | WPDUROPN2 ---
Progress Note: A&P Assessment and Plan (1) Urinary retention: Code(s): R33.9 - Retention of urine, unspecified Status: Acute (2) Urinary hesitancy: Code(s): R39.11 - Hesitancy of micturition Status: Acute (3) Frequent UTI: Code(s): N39.0 - Urinary tract infection, site not specified Status: Acute Assessment and Plan: Unable to place patient on prophylaxsis d/t multi drug resistance. Will need to continue to treat UTI's individually. (4) Urinary tract infection: Code(s): N39.0 - Urinary tract infection, site not specified Status: Acute Assessment and Plan: GILBERT shows only bladder wall thickening indicating cystitis, otherwise normal. Urine culture pending, tailor antibiotics to culture results. No further evaluation needed. She will follow up in the office as planned. WBC is improved. Subjective Subjective Date/Time Seen: 01/27/20 09:01 UTI Review of Systems Cardiovascular: Cardiovascular: Denies chest pain Respiratory: Respiratory: Reports no additional respiratory complaints Gastrointestinal: Gastrointestinal: Reports abdominal pain, Denies nausea and Denies vomiting Genitourinary: Genitourinary: Reports dysuria, Denies flank pain and Reports urinary incontinence Exam Resp: Effort & Inspection: normal respiratory effort Cardio: Rate: bradycardic GI: GI Palp: Yes abdominal tenderness Objective Data Vital Signs Vital Signs: Vital Signs - 24 hr 01/26/20 09:18 01/26/20 12:00 01/26/20 14:00 Temperature 97.3 F L Pulse Rate 51 L 51 L 64 Respiratory Rate 18 Blood Pressure 153/73 H Pulse Oximetry 100 01/26/20 16:00 01/26/20 17:53 01/26/20 20:00 Temperature 98.1 F Pulse Rate 62 58 L 59 L Respiratory Rate 16 Blood Pressure 134/58 L Pulse Oximetry 93 01/27/20 00:00 01/27/20 04:00 01/27/20 08:00 Temperature 97.3 F L 97.5 F L 97.8 F Pulse Rate 60 82 58 L Respiratory Rate 16 16 18 Blood Pressure 126/46 L 129/40 L 130/78 Pulse Oximetry 93 93 93 Intake/Output Intake/Output: Intake & Output 02/29/20 03/01/20 03/02/20 03/03/20 23:59 23:59 23:59 23:59 Intake Total 2260 3440 2530 450 Output Total 1100 1300 1800 1050 Balance 1160 2140 730 -600 Meds/Results Medications: Active Medications Generic Name Dose Route Start Last Admin Trade Name Freq PRN Reason Stop Dose Admin Acetaminophen 325 mg 01/25/20 20:17 Tylenol Tablet PO Q4H PRN Mild Pain (1-3) or Fever Hydrocodone Bitart/Acetaminophen 1 tab 01/25/20 20:18 01/26/20 20:18 [place] 7.5-325 Mg PO 1 tab Q6H PRN Administration Pain RATED 4-10 Artificial Tears 1 drop 01/24/20 21:00 01/26/20 20:21 Artificial Tears EACH EYE 1 drop QID GOGO Administration Aspirin 81 mg 01/25/20 09:00 01/26/20 09:17 Aspirin Chewable PO 81 mg DAILY GOGO Administration Carbidopa/Levodopa 3 tablet 01/25/20 09:00 01/26/20 20:20 Sinemet 25/100 Mg PO 3 tablet QID GOGO Administration Carvedilol 12.5 mg 01/25/20 09:00 01/26/20 17:53 Coreg PO 12.5 mg BID GOGO Administration Clonazepam 0.5 mg 01/25/20 09:00 01/26/20 17:55 Klonopin Tablet PO 0.5 mg BID GOGO Administration Clonazepam 1 mg 01/24/20 21:00 01/26/20 20:19 Klonopin Tablet PO 1 mg HS GOGO Administration Cyclosporine 1 drop 01/24/20 21:00 01/26/20 20:22 Restasis EACH EYE 1 drop Q12HR GOGO Administration Dextrose 12.5 gm 01/24/20 21:25 Dextrose 50% Syringe IV PUSH PRN PRN Hypoglycemia Protocol Duloxetine HCl 30 mg 01/25/20 09:00 01/26/20 09:17 Cymbalta PO 30 mg DAILY GOGO Administration Duloxetine HCl 60 mg 01/25/20 09:00 01/26/20 17:52 Cymbalta PO 60 mg BID GOGO Administration Estradiol 1 applic 01/26/20 21:00 01/26/20 20:22 Estrace Vaginal Cream VAGINAL 1 applic Q48H GOGO Administration Furosemide 20 mg 01/25/20 09:00 01/26/20 09:16 Lasix Tablet PO 20 mg
[2020-01-27] MEDS: GABAPENTIN 300 MG CAPSULE PO ×2 (09:05→17:33)
[2020-01-27] MEDS: MUPIROCIN 2% OINT 22 GM TUBE 1 APPLIC EACH NARE ×2 (09:05→21:48)
[2020-01-27] MEDS: DULOXETINE HCL 30 MG CAPSULE.DR PO (09:05)
[2020-01-27] MEDS: MIRABEGRON 25 MG ER TABLET PO (09:05)
[2020-01-27] MEDS: lisinopriL 10 MG TABLET PO (09:06)
[2020-01-27] MEDS: LUBIPROSTONE 24 MCG CAPSULE PO ×2 (09:06→17:32)
[2020-01-27] MEDS: CHOLECALCIFEROL 1,000 UNIT TABLET 2000 UNITS PO (09:06)
[2020-01-27] MEDS: ASPIRIN 81 MG CHEWABLE TABLET PO (09:06)
[2020-01-27] MEDS: PANTOPRAZOLE 40 MG TABLET PO ×2 (09:06→17:33)
[2020-01-27] MEDS: FUROSEMIDE 20 MG TABLET PO (09:06)
[2020-01-27] MEDS: carvediloL 12.5 MG TABLET PO ×2 (09:07→17:35)
[2020-01-27] MEDS: CARBIDOPA/LEVODOPA 25/100 MG TABLET 3 TABLET PO ×4 (09:10→21:30)
[2020-01-27] MEDS: RIVASTIGMINE TARTRATE 1.5 MG CAPSULE 4.5 MG PO ×2 (09:10→17:37)
[2020-01-27] MEDS: hydroCHLOROthiazide 12.5 MG CAPSULE PO (09:11)
[2020-01-27] MEDS: POTASSIUM CHLORIDE 10 MEQ TABLET.ER PO (09:11)
[2020-01-27] MEDS: DULOXETINE 60 MG CAPSULE.DR PO ×2 (09:12→17:33)
[2020-01-27] MEDS: INSULIN ASPART (*BKC) 100 UNITS/ML SUB-Q (09:15)
[2020-01-27] MEDS: CLONAZEPAM 0.5 MG TAB PO ×2 (09:20→17:35)
[2020-01-27] MEDS: POLYSACCHARIDE IRON COMPLEX 150 MG CAPSULE PO (09:23)
[2020-01-27 11:28] LABS: Glucose Point of Care 155 (65-105)
--- NOTE | 2020-01-27 12:55 | PM.IMPN ---
Progress Note: A&P Assessment and Plan (1) Urinary retention: Code(s): R33.9 - Retention of urine, unspecified Status: Acute Assessment and Plan: Bladder scan on 01/26/20 showed 939cc. Retention suspected to be secondary to UTI. - Continue Ruiz catheter for 3 days with voiding trial following - Continue urology recommendations with input greatly appreciated (2) Altered mental status: Code(s): R41.82 - Altered mental status, unspecified Status: Resolved Assessment and Plan: Patient is alert and oriented x3 today. Prior episode of AMS likely multifactorial due to UTI, dehydration, hypoglycemia, and underlying dementia related to Parkinson's disease. CT head at presentation in ED was unremarkable and suggested small vessel ischemid disease. Due to an episode of expressive aphasia, a brain MRI was performed and revealed no evidence of infarct, hemorrhage, or mass lesion. - Continue to monitor mental status (3) Frequent UTI: Code(s): N39.0 - Urinary tract infection, site not specified Status: Acute Assessment and Plan: Patient has a history of UTIs and is established with urologist Dr. Haynes. Urology attempted prophylactic abx therapy but due to history of multi drug resistant infections, prophylaxis had to be discontinued. Renal US shows bladder wall thickening suggestive of cystitis. - Await urine culture results - Continue imipenem/cilastatin and de-escalate based on susceptibility. (4) Acute dehydration: Code(s): E86.0 - Dehydration Status: Resolved Assessment and Plan: Patient given IV fluid resuscitation. - Continue oral fluid intake and continue to monitor fluid status. (5) Diarrhea: Qualifiers: Diarrhea type: unspecified type Qualified Code(s): R19.7 - Diarrhea, unspecified Code(s): R19.7 - Diarrhea, unspecified Status: Acute Assessment and Plan: Patient reports a large volume of malodorous liquid stool 2 days ago. Denies melena or hematochezia. She does report history of chronic diarrhea. - Continue probiotic - Continue loperamide prn - Await results of stool cultures (6) Diabetes: Qualifiers: Diabetes mellitus complication detail: with polyneuropathy Diabetes mellitus complication status: with neurologic complications Diabetes mellitus terminal make up operator insulin use: with terminal make up operator use Diabetes mellitus type: type 2 Qualified Code(s): E11.42 - Type 2 diabetes mellitus with diabetic polyneuropathy; Z79.4 - meterman (current) use of insulin Code(s): E11.9 - Type 2 diabetes mellitus without complications Status: Chronic Assessment and Plan: Blood sugar evaluated today and stable at 173. - Continue home glargine with 20% reduction - Continue accuchecks, SSI, and hypoglycemic protocol (7) Parkinsons: Code(s): G20 - Parkinson's disease Status: Chronic Assessment and Plan: Stable. - Continue home dose of carbidopa-levodopa, rivastigmine, and Pimavanserin (8) Fibromyalgia: Code(s): M79.7 - Fibromyalgia Status: Chronic Assessment and Plan: Stable - continue with Zanaflex, [place], gabapentin, and tylenol (9) Depression: Qualifiers: Depression Type: unspecified Qualified Code(s): F32.9 - Major depressive disorder, single episode, unspecified Code(s): F32.9 - Major depressive disorder, single episode, unspecified Status: Chronic Assessment and Plan: Stable - continue cymbalta and seroquel (10) Neuropathy: Code(s): G62.9 - Polyneuropathy, unspecified Status: Chronic Assessment and Plan: - Continue gabapentin (11) HTN (hypertension) with goal to be determined: Code(s): I10 - Essential (primary) hypertension Status: Chronic Assessment and Plan: BP evaluated today and stable at 130/78 - Continue home dose lisinopril-hydrochl
[2020-01-27] MEDS: CLONAZEPAM 0.5 MG TAB 1 MG PO (21:30)
[2020-01-27] MEDS: QUEtiapine FUMARATE 100 MG TABLET 200 MG PO (21:30)
[2020-01-27] MEDS: GABAPENTIN 400 MG CAPSULE 800 MG PO (21:30)
[2020-01-27] MEDS: TIZANIDINE HCL 4 MG TABLET PO (21:30)
[2020-01-27] MEDS: QUEtiapine FUMARATE 25 MG TABLET 50 MG PO (21:32)
[2020-01-27] MEDS: INSULIN GLARGINE (*BKC) 100 UNITS/ML 48 UNITS SUB-Q (21:51)
[2020-01-27 23:31] LABS: Glucose Point of Care 233 (65-105)
[2020-01-28] VITALS (8 sets, daily range): BP systolic 122–146; BP diastolic 45–64; PULSE 52–63; RESP 16–18; TEMP 36.3–36.6; O2SAT 92–98
[2020-01-28] MEDS: IMIPENEM/CILASTATIN SODIUM 500 MG in DEXTROSE 5% 100 ML 150 MG IVPB ×3 (05:40→22:26)
[2020-01-28 05:56] LABS: Hemoglobin 11.3 g/dL (12.0-15.0); Mean Corpuscular HGB Conc 30.5 g/dl (32-36); Mean Corpuscular Hemoglobin 29.6 pg (26-34); Mean Corpuscular Volume 96.9 fl (80-100); Mean Platelet Volume 12.1 fl (7.4-10.4); Platelet Count Result 88 k/mm3 (150-375); Red Blood Count 3.82 M/mm3 (4.2-5.4); Red Cell Distribution Width 13.2 % (11.5-14.5); White Blood Count 5.1 K/mm3 (4.5-10.0)
[2020-01-28 06:13] LABS: Alanine Aminotransferase 7 U/L (4-35); Albumin Level 3.3 g/dL (3.5-5.1); Alkaline Phosphatase 84 U/L (38-126); Aspartate Amino Transferase 13 U/L (14-36); Bilirubin,Total 0.4 mg/dL (0.2-1.3); Blood Urea Nitrogen 24 mg/dL (7-17); Calcium 8.3 mg/dL (8.4-10.2); Carbon Dioxide 32 mmol/L (22-30); Chloride 102 mmol/L (98-107); Estimated CRCL calculation 40 ml/min; Estimated Glomerular Filt Rate 48; Glucose 177 mg/dL (65-105); Potassium 3.8 mmol/L (3.4-5.0); Sodium 140 mmol/L (137-145)
[2020-01-28 07:07] LABS: Vitamin D 25 Hydroxy 36.6 ng/mL
[2020-01-28 08:42] LABS: Glucose Point of Care 178 (65-105)
[2020-01-28] MEDS: FUROSEMIDE 20 MG TABLET PO (09:13)
[2020-01-28] MEDS: MUPIROCIN 2% OINT 22 GM TUBE 1 APPLIC EACH NARE ×2 (09:13→22:26)
[2020-01-28] MEDS: PANTOPRAZOLE 40 MG TABLET PO ×2 (09:13→17:16)
[2020-01-28] MEDS: CARBIDOPA/LEVODOPA 25/100 MG TABLET 3 TABLET PO ×4 (09:13→22:18)
[2020-01-28] MEDS: POLYSACCHARIDE IRON COMPLEX 150 MG CAPSULE PO (09:13)
[2020-01-28] MEDS: lisinopriL 10 MG TABLET PO (09:14)
[2020-01-28] MEDS: LUBIPROSTONE 24 MCG CAPSULE PO ×2 (09:14→17:16)
[2020-01-28] MEDS: CLONAZEPAM 0.5 MG TAB PO ×2 (09:14→17:19)
[2020-01-28] MEDS: DULOXETINE HCL 30 MG CAPSULE.DR PO (09:14)
[2020-01-28] MEDS: MIRABEGRON 25 MG ER TABLET PO (09:14)
[2020-01-28] MEDS: POTASSIUM CHLORIDE 10 MEQ TABLET.ER PO (09:14)
[2020-01-28] MEDS: ASPIRIN 81 MG CHEWABLE TABLET PO (09:14)
[2020-01-28] MEDS: hydroCHLOROthiazide 12.5 MG CAPSULE PO (09:14)
[2020-01-28] MEDS: GABAPENTIN 300 MG CAPSULE PO ×2 (09:14→17:15)
[2020-01-28] MEDS: carvediloL 12.5 MG TABLET PO ×2 (09:15→17:16)
[2020-01-28] MEDS: RIVASTIGMINE TARTRATE 1.5 MG CAPSULE 4.5 MG PO ×2 (09:15→17:16)
[2020-01-28] MEDS: CHOLECALCIFEROL 1,000 UNIT TABLET 2000 UNITS PO (09:15)
[2020-01-28] MEDS: DULOXETINE 60 MG CAPSULE.DR PO ×2 (09:17→17:15)
[2020-01-28 13:04] LABS: Glucose Point of Care 131 (65-105)
--- NOTE | 2020-01-28 13:58 | PM.IMPN ---
Progress Note: A&P Assessment and Plan (1) Urinary retention: Code(s): R33.9 - Retention of urine, unspecified Status: Acute Assessment and Plan: Bladder scan on 01/26/20 showed 939cc. Retention suspected to be secondary to UTI. - Continue Ruiz catheter for 3 days with voiding trial following - Continue urology recommendations with input greatly appreciated (2) Altered mental status: Code(s): R41.82 - Altered mental status, unspecified Status: Resolved Assessment and Plan: Patient is alert and oriented x3 today. Prior episode of AMS likely multifactorial due to UTI, dehydration, hypoglycemia, and underlying dementia related to Parkinson's disease. CT head at presentation in ED was unremarkable and suggested small vessel ischemic disease. Due to an episode of expressive aphasia, a brain MRI was performed and revealed no evidence of infarct, hemorrhage, or mass lesion. - Continue to monitor mental status (3) Frequent UTI: Code(s): N39.0 - Urinary tract infection, site not specified Status: Acute Assessment and Plan: Patient has a history of UTIs and is established with urologist Dr. Haynes. Urology attempted prophylactic abx therapy but due to history of multi drug resistant infections, prophylaxis had to be discontinued. Renal US shows bladder wall thickening suggestive of cystitis. Urine culture revealed >100,000 CFU E. coli with susceptibility to imipenem. - Stop imipenem/cilastatin - Plan for discharge with Nitrofurantoin (4) Acute dehydration: Code(s): E86.0 - Dehydration Status: Resolved Assessment and Plan: Patient given IV fluid resuscitation. - Continue oral fluid intake and continue to monitor fluid status. (5) Diarrhea: Qualifiers: Diarrhea type: unspecified type Qualified Code(s): R19.7 - Diarrhea, unspecified Code(s): R19.7 - Diarrhea, unspecified Status: Resolved Assessment and Plan: Patient reports a large volume of malodorous liquid stool 2 days ago. Denies melena or hematochezia. She does report history of chronic diarrhea. She has since had solid stools with no episodes of diarrhea in 3 days. She was not able to provide a sample for culture and culture is not pertinent as diarrhea resolved and patient exhibits no signs of further infection. - Continue probiotic - Continue loperamide prn - Cancel stool cultures (6) Diabetes: Qualifiers: Diabetes mellitus type: type 2 Diabetes mellitus skilled nursing insulin use: with skilled nursing use Diabetes mellitus complication status: with neurologic complications Diabetes mellitus complication detail: with polyneuropathy Qualified Code(s): E11.42 - Type 2 diabetes mellitus with diabetic polyneuropathy; Z79.4 - emt intermediate (current) use of insulin Code(s): E11.9 - Type 2 diabetes mellitus without complications Status: Chronic Assessment and Plan: Blood sugar evaluated today and stable at 177. - Continue home glargine with 20% reduction - Continue accuchecks, SSI, and hypoglycemic protocol (7) Parkinsons: Code(s): G20 - Parkinson's disease Status: Chronic Assessment and Plan: Stable. - Continue home dose of carbidopa-levodopa, rivastigmine, and Pimavanserin (8) Fibromyalgia: Code(s): M79.7 - Fibromyalgia Status: Chronic Assessment and Plan: Stable - continue with Zanaflex, [place], gabapentin, and tylenol (9) Depression: Qualifiers: Depression Type: unspecified Qualified Code(s): F32.9 - Major depressive disorder, single episode, unspecified Code(s): F32.9 - Major depressive disorder, single episode, unspecified Status: Chronic Assessment and Plan: Stable - continue cymbalta and seroquel (10) Neuropathy: Code(s): G62.9 - Polyneuropathy, unspecified Status: Chronic Assessment and Plan: - Continu
[2020-01-28 17:24] LABS: Glucose Point of Care 152 (65-105)
[2020-01-28] MEDS: QUEtiapine FUMARATE 100 MG TABLET 200 MG PO (22:19)
[2020-01-28] MEDS: QUEtiapine FUMARATE 25 MG TABLET 50 MG PO (22:19)
[2020-01-28] MEDS: GABAPENTIN 400 MG CAPSULE 800 MG PO (22:19)
[2020-01-28] MEDS: TIZANIDINE HCL 4 MG TABLET PO (22:20)
[2020-01-28] MEDS: ESTRADIOL VAGINAL CREAM 42.5 GM 1 APPLIC VAGINAL (22:20)
[2020-01-28] MEDS: CLONAZEPAM 0.5 MG TAB 1 MG PO (22:24)
[2020-01-28] MEDS: INSULIN GLARGINE (*BKC) 100 UNITS/ML 48 UNITS SUB-Q (22:27)
[2020-01-28 22:52] LABS: Glucose Point of Care 190 (65-105)
[2020-01-29 05:41] VITALS: BP 93/60; PULSE 58; RESP 16; TEMP 36.3; O2SAT 94
[2020-01-29] MEDS: IMIPENEM/CILASTATIN SODIUM 500 MG in DEXTROSE 5% 100 ML 150 MG IVPB ×2 (06:29→13:11)
[2020-01-29 08:00] VITALS: BP 100/58
[2020-01-29 08:06] LABS: Glucose Point of Care 128 (65-105)
[2020-01-29] MEDS: SODIUM CHLORIDE 0.9% IV 500 ML IV CONT (09:12)
[2020-01-29] MEDS: MIRABEGRON 25 MG ER TABLET PO (09:17)
[2020-01-29] MEDS: DULOXETINE HCL 30 MG CAPSULE.DR PO (09:17)
[2020-01-29] MEDS: MUPIROCIN 2% OINT 22 GM TUBE 1 APPLIC EACH NARE (09:17)
[2020-01-29] MEDS: RIVASTIGMINE TARTRATE 1.5 MG CAPSULE 4.5 MG PO (09:17)
[2020-01-29] MEDS: FUROSEMIDE 20 MG TABLET PO (09:17)
[2020-01-29] MEDS: LUBIPROSTONE 24 MCG CAPSULE PO (09:18)
[2020-01-29] MEDS: POTASSIUM CHLORIDE 10 MEQ TABLET.ER PO (09:18)
[2020-01-29] MEDS: POLYSACCHARIDE IRON COMPLEX 150 MG CAPSULE PO (09:18)
[2020-01-29] MEDS: CARBIDOPA/LEVODOPA 25/100 MG TABLET 3 TABLET PO ×2 (09:18→13:15)
[2020-01-29] MEDS: PANTOPRAZOLE 40 MG TABLET PO (09:18)
[2020-01-29] MEDS: ASPIRIN 81 MG CHEWABLE TABLET PO (09:18)
[2020-01-29] MEDS: CHOLECALCIFEROL 1,000 UNIT TABLET 2000 UNITS PO (09:18)
[2020-01-29] MEDS: CLONAZEPAM 0.5 MG TAB PO (09:18)
[2020-01-29] MEDS: GABAPENTIN 300 MG CAPSULE PO (09:19)
[2020-01-29] MEDS: DULOXETINE 60 MG CAPSULE.DR PO (09:19)
[2020-01-29 09:30] VITALS: BP 104/58
[2020-01-29 11:12] LABS: Hematocrit 37.2 % (37.0-47.0); Hemoglobin 11.5 g/dL (12.0-15.0); Mean Corpuscular HGB Conc 30.9 g/dl (32-36); Mean Corpuscular Hemoglobin 30.1 pg (26-34); Mean Corpuscular Volume 97.4 fl (80-100); Mean Platelet Volume 12.1 fl (7.4-10.4); Platelet Count Result 90 k/mm3 (150-375); Red Blood Count 3.82 M/mm3 (4.2-5.4); Red Cell Distribution Width 13.3 % (11.5-14.5); White Blood Count 6.4 K/mm3 (4.5-10.0)
[2020-01-29 11:36] LABS: Alanine Aminotransferase 6 U/L (4-35); Albumin Level 3.4 g/dL (3.5-5.1); Alkaline Phosphatase 69 U/L (38-126); Aspartate Amino Transferase 15 U/L (14-36); Bilirubin,Total 0.6 mg/dL (0.2-1.3); Blood Urea Nitrogen 31 mg/dL (7-17); Calcium 8.4 mg/dL (8.4-10.2); Carbon Dioxide 34 mmol/L (22-30); Chloride 101 mmol/L (98-107); Estimated CRCL calculation 34 ml/min; Estimated Glomerular Filt Rate 40; Glucose 115 mg/dL (65-105); Potassium 4.1 mmol/L (3.4-5.0); Sodium 140 mmol/L (137-145)
[2020-01-29 12:18] LABS: Glucose Point of Care 135 (65-105)
[2020-01-29 13:01] VITALS: BP 130/70; PULSE 73; RESP 18; TEMP 36.3; O2SAT 98
--- NOTE | 2020-01-30 07:17 | PM.DS ---
DS: Diagnosis Admitting Diagnosis Admitting Diagnosis: Urinary tract infection, site not specified Discharge Diagnosis (1) Urinary retention: Code(s): R33.9 - Retention of urine, unspecified Status: Acute (2) Altered mental status: Code(s): R41.82 - Altered mental status, unspecified Status: Resolved (3) Frequent UTI: Code(s): N39.0 - Urinary tract infection, site not specified Status: Acute (4) Acute dehydration: Code(s): E86.0 - Dehydration Status: Resolved (5) Diarrhea: Qualifiers: Diarrhea type: unspecified type Qualified Code(s): R19.7 - Diarrhea, unspecified Code(s): R19.7 - Diarrhea, unspecified Status: Resolved (6) Diabetes: Qualifiers: Diabetes mellitus complication detail: with polyneuropathy Diabetes mellitus complication status: with neurologic complications Diabetes mellitus terminal carman insulin use: with terminal carman use Diabetes mellitus type: type 2 Qualified Code(s): E11.42 - Type 2 diabetes mellitus with diabetic polyneuropathy; Z79.4 - buttermaker (current) use of insulin Code(s): E11.9 - Type 2 diabetes mellitus without complications Status: Chronic (7) Parkinsons: Code(s): G20 - Parkinson's disease Status: Chronic (8) Fibromyalgia: Code(s): M79.7 - Fibromyalgia Status: Chronic (9) Depression: Qualifiers: Depression Type: unspecified Qualified Code(s): F32.9 - Major depressive disorder, single episode, unspecified Code(s): F32.9 - Major depressive disorder, single episode, unspecified Status: Chronic (10) Neuropathy: Code(s): G62.9 - Polyneuropathy, unspecified Status: Chronic (11) HTN (hypertension) with goal to be determined: Code(s): I10 - Essential (primary) hypertension Status: Chronic DS: Summary Hospital Course Reason for hospitalization: Altered mental status Hospital Course: Ms. Munoz is a 79 year old female with a past medical history significant for insulin dependent diabetes mellitus, parkinson's disease with dementia, HTN, HLD, osteoporosis, and multiple drug resistant UTIs. She presented to the emergency department on 01/24/20 after an episode where staff at [facility] where she is a resident, found her slumped over and complaining of weakness and lethargy. She arrived via EMS and was admitted for altered mental status, and UTI on 01/24/20. She is a long standing patient with urologist Dr. Haynes, who was consulted. She was initiated on Imipenem/Cilastatin. A renal ultrasound showed bladder wall thickening suggestive of cystitis. Her vitals remained stable, she was afebrile, and had no leukocytosis. Urine culture was positive for E. coli and she was transitioned to oral nitrofurantoin for 7 days at discharge at the recommendation of urology MANDEEP Mcbride. Additionally, she had urinary retention, and a bladder scan on 01/26/20 showed 939 cc. A Ruiz catheter was inserted, and on 01/28/20, a voiding trial was attempted, however patient was unable to void. Repeat bladder scan again showed retention and per recommendation of Kathryn Mcbride APN, she was discharged with continued Ruiz catheter and instructed to follow up with Urology in 1 week. She did have altered mental status at presentation. Head CT revealed chronic small vessel disease. She described an episode of expressive aphasia and MRI performed on 01/26/20 showed mild cerebral white matter disease but no hemorrhage, infarction, or mass lesion. Her mental status improved and on my exams, she remained alert and oriented x3. Her diabetes remained reasonably well controlled and no changes were made to her insulin regimen with additional sliding scale insulin and hypoglycemic protocol ordered during her stay. She did have one episode of asymptomatic hypotension on 01/29/2020 at 93/60, which responded well to 500 ml fluid bolus and blood pressure at time
== END 2020-01-29 15:16 | DRG 690 ==
LOC: ANHED 10:58 → ANH3MED 11:27
PROVIDERS: Emergency Medicine Emergency Medical Services; Nurse Practitioner; Physician Assistant; Admitting Provider Family Medicine; Emergency Provider Emergency Medicine; Visit Provider Family Medicine
DX: N39.0 Urinary tract infection, site not specified (principal); B96.20 Unspecified Escherichia coli [E. coli] as the cause of diseases classified elsewhere; R33.9 Retention of urine, unspecified; R39.11 Hesitancy of micturition; R32 Unspecified urinary incontinence; E86.0 Dehydration; R41.82 Altered mental status, unspecified; E11.42 Type 2 diabetes mellitus with diabetic polyneuropathy; H35.30 Unspecified macular degeneration; M79.7 Fibromyalgia; I95.9 Hypotension, unspecified; F32.9 Major depressive disorder, single episode, unspecified; I10 Essential (primary) hypertension; F02.80 Dementia in other diseases classified elsewhere, unspecified severity, without behavioral disturbance, psychotic disturbance, mood disturbance, and anxiety; M81.0 Age-related osteoporosis without current pathological fracture; Z79.4 Long term (current) use of insulin; Z90.710 Acquired absence of both cervix and uterus; Z96.653 Presence of artificial knee joint, bilateral; Z66 Do not resuscitate
CPT/HCPCS: 36415; 51701; 70450; 70553; 71046; 76775; 80048; 80053; 81001; 82306; 83036; 83605; 83735; 84100; 84443; 84484; 85025; 85027; 85055; 87040; 87077; 87081; 87086; 87088; 87186; 93005; 96361; 96365; 96366; 96375; 96376; 97110; 97161; 97165; 97530; 97535; 99285; A9270; A9577; G0378; J0131; J0743; J1815; J7030; J7040; J7060; J7120

== ENCOUNTER 2020-02-08 19:36 | Emergency (ER) | payer MEDICARE, MEDICAID, SELFPAY ==
--- NOTE | ~2020-02-08 | XR_ITS ---
EXAMINATION: XR chest 2V DATE: 02/08/2020 19:57 INDICATION: Generalized weakness TECHNIQUE: AP and lateral views of the chest are obtained. COMPARISON: 01/24/2020 FINDINGS: There is chronic elevation of the right hemidiaphragm. There is mild atelectasis of the rig ht lung base. Healed left-sided rib fractures are noted. The cardiomediastinal silhouette is normal. There is no pleural effusion or pneumothorax. Changes of anterior and posterior fusion are noted in t he lumbar spine. IMPRESSION: 1. No acute cardiopulmonary abnormality. Reviewed, dictated and finalized at location A.
[2020-02-08 19:31] VITALS: BP 169/70; PULSE 78; RESP 16; TEMP 36.2; O2SAT 97
[2020-02-08 19:41] VITALS: PULSE 75
--- NOTE | 2020-02-08 19:42 | ECG_ITS ---
Measurements Intervals [place] Rate: 75 P: 186 PA: 149 QRS: -51 QRSD: 98 T: -18 QT: 420 QTc: 472 Interpretive Statements SINUS RHYTHM LEFT AXIS DEVIATION EXTENSIVE ANTERIOR INFARCT, AGE INDETERMINATE INFERIOR INFARCT, AGE INDETERMINATE BASELINE ARTIFACT- I, II, III, AVR, AVL, AVF, V1-V3 ABNORMAL ECG Electronically Signed On 02-09-2020 7:03:34 CDT by [place] Don D.O.
--- NOTE | 2020-02-08 20:14 | ED.WEAKNESS ---
HPI - Weakness General Chief complaint: Weakness Stated complaint: weakness Time Seen by Provider: 02/08/20 20:13 Source: patient, RN notes reviewed and old records reviewed Mode of arrival: EMS Limitations: no limitations History of Present Illness HPI Narrative: A 79 y/o female presents to the ED via EMS from [facility] with worsening generalized weakness for the past week. Per old records the pt was admitted on 01/26/20 and was d/c on 01/29/20. She reports that she was admitted d/t generalized weakness, a syncopal episode, and a UTI. She notes that for the past week she has been having worsening generalized weakness, worsening tremors, and a decreased appetite. She also notes that she has been having diarrhea but that it has been improving. She denies any fevers, chills, N/V, cough, or SOB. MD Complaint: generalized weakness Onset (ago): week(s) (1) Duration: progressively worsening Location: generalized Context: recent illness Associated symptoms: loss of appetite and other (worsening tremors and improving diarrhea) Related Data Home Medications Medication Instructions Recorded Confirmed Amitiza 24 mcg PO BID 01/24/20 01/24/20 Basaglar KwikPen U-100 Insulin 60 unit SUBCUT HS 01/24/20 01/24/20 Lactobacillus acidophilus 2,000 mmu cells PO BID 01/24/20 01/24/20 [Acidophilus] Myrbetriq 25 mg PO DAILY 01/24/20 01/24/20 Nuplazid 34 mg PO DAILY 01/24/20 01/24/20 Refresh Tears 1 drp OPHTHALMIC (EYE) QID 01/24/20 01/24/20 Restasis 1 drp OPHTHALMIC (EYE) Q12H 01/24/20 01/24/20 acetaminophen [Tylenol] 650 mg PO Q4H PRN 01/24/20 01/24/20 aspirin 81 mg PO DAILY 01/24/20 01/24/20 carbidopa-levodopa 3 tablet PO QID 01/24/20 01/24/20 carvedilol 12.5 mg PO BID 01/24/20 01/24/20 cholecalciferol (vitamin D3) 2,000 unit PO DAILY 01/24/20 01/24/20 [Vitamin D3] clonazepam 0.5 mg PO BID 01/24/20 01/24/20 clonazepam 1 mg PO HS 01/24/20 01/24/20 duloxetine 30 mg PO DAILY 01/24/20 01/24/20 duloxetine 60 mg PO BID 01/24/20 01/24/20 estradiol [Estrace] 1 g VAGINAL 3XW 01/24/20 01/24/20 furosemide [Lasix] 20 mg PO DAILY 01/24/20 01/24/20 gabapentin 300 mg PO BID 01/24/20 01/24/20 gabapentin 800 mg PO HS 01/24/20 01/24/20 hydrocodone-acetaminophen 1 - 2 tablet PO Q6H PRN 01/24/20 01/24/20 insulin aspart U-100 [Novolog 8 unit SUBCUT TID 01/24/20 01/24/20 Flexpen U-100 Insulin] lisinopril-hydrochlorothiazide 1 tablet PO DAILY 01/24/20 01/24/20 omega 7-vkl-epo-fish oil [Fish Oil] 2 cap PO BID 01/24/20 01/24/20 omeprazole 20 mg PO BID 01/24/20 01/24/20 polyethylene glycol 3350 [Miralax] 17 g PO DAILY PRN 01/24/20 01/24/20 polysaccharide iron complex 150 mg PO DAILY 01/24/20 01/24/20 [Poly-Iron] potassium chloride 10 meq PO DAILY 01/24/20 01/24/20 quetiapine [Seroquel] 50 mg PO HS 01/24/20 01/24/20 quetiapine [Seroquel] 200 mg PO HS 01/24/20 01/24/20 rivastigmine tartrate 4.5 mg PO BID 01/24/20 01/24/20 tizanidine [Zanaflex] 4 mg PO HS 01/24/20 01/24/20 Allergies Allergy/AdvReac Type Severity Reaction Status Date / Time No Known Allergies Allergy Verified 02/08/20 21:19 Review of Systems Review of Systems: All systems reviewed & are unremarkable except as noted in HPI and below Constitutional: Constitutional: Denies chills, Denies fever(s), Reports poor appetite and Reports weakness (generalized) Respiratory: Respiratory: Denies cough and Denies dyspnea Gastrointestinal: Gastrointestinal: Reports diarrhea (improving), Denies nausea and Denies vomiting Neurologic: Reports tremor(s) (worsening) [facility] Past Medical History Medical History Constipation Degenerative disc disease Dementia Depression Diabetes Fibromyalgia HTN (hypertension) with goal to be determined Hyperlipidemia Macular degeneration Mitral valve prolapse Neuropathy Feet and hands Osteoporosis Parkinsons Surgical History Surgical History H/O cardiac catheterizat
[2020-02-08 20:49] LABS: Basophils Percent Auto 0.5 % (0.2-1.2); Eosinophils Absolute Auto 0.1 K/mm3 (0-0.3); Eosinophils Percent Auto 1.6 % (0-4.4); Hematocrit 41.7 % (37.0-47.0); Immature Granulocyte Absolute 0.02 K/mm3 (0.00-0.031); Immature Granulocyte Percent A 0.3 % (0-0.5); Lymphocytes Absolute Auto 0.88 K/mm3 (0.9-3.2); Lymphocytes Percent Auto 14.1 % (18.3-44.2); Mean Corpuscular HGB Conc 31.2 g/dl (32-36); Mean Corpuscular Hemoglobin 29.8 pg (26-34); Mean Corpuscular Volume 95.6 fl (80-100); Mean Platelet Volume 12.5 fl (7.4-10.4); Monocytes Absolute Auto 0.5 K/mm3 (0.1-0.6); Monocytes Percent Auto 7.4 % (2.6-8.5); Neutrophils Absolute Auto 4.7 K/mm3 (1.3-6.7); Neutrophils Percent Auto 76.1 % (45.5-73.1); Platelet Count Result 113 k/mm3 (150-375); Red Blood Count 4.36 M/mm3 (4.2-5.4); Red Cell Distribution Width 12.9 % (11.5-14.5); White Blood Count 6.2 K/mm3 (4.5-10.0)
[2020-02-08 20:56] LABS: Add Urine Microscopic? YES; Appearance Urine Clear (Clear); Bacteria Urine 4+ /hpf; Bilirubin Urine Negative (Negative); Blood Urine Negative (Negative); Color Urine Yellow (Yellow); Glucose Urine UA Negative (Negative); Ketones Urine Trace mg/dL (Negative); Leukocyte Esterase Ur 2+ LEU/UL (Negative); Mucus Urine Rare /lpf; Nitrate Urine Negative (Negative); Protein Urine Negative (Negative); Specific Grav Ur 1.012 (1.001-1.035); Squamous Epithelial Cell Urine Rare /hpf (Few); WBC Urine 31-50 /hpf
[2020-02-08 21:00] VITALS: BP 137/65; PULSE 67; RESP 14; O2SAT 98
[2020-02-08 21:01] LABS: Alanine Aminotransferase 7 U/L (4-35); Albumin Level 4.4 g/dL (3.5-5.1); Alkaline Phosphatase 105 U/L (38-126); Aspartate Amino Transferase 17 U/L (14-36); Bilirubin,Total 0.7 mg/dL (0.2-1.3); Blood Urea Nitrogen 21 mg/dL (7-17); Calcium 9.5 mg/dL (8.4-10.2); Carbon Dioxide 36 mmol/L (22-30); Chloride 96 mmol/L (98-107); Estimated CRCL calculation 46 ml/min; Estimated Glomerular Filt Rate 54; Glucose 184 mg/dL (65-105); Potassium 4.5 mmol/L (3.4-5.0); Sodium 140 mmol/L (137-145)
[2020-02-08 21:13] LABS: Troponin I < 0.012 ng/mL (0.000-0.034)
[2020-02-08 21:33] VITALS: BP 131/62; PULSE 66; RESP 18; TEMP 36.8; O2SAT 98
[2020-02-08 22:22] VITALS: BP 139/57; PULSE 64; RESP 18; O2SAT 97
[2020-02-08 22:55] VITALS: BP 134/56; PULSE 65; RESP 18; O2SAT 98
--- NOTE | 2020-02-08 23:12 | PC.NURSE ---
Called [facility] to transport patient back to [facility]...ETA 45 minutes
== END 2020-02-08 23:50 ==
PROVIDERS: Emergency Medicine; Emergency Provider Emergency Medicine
DX: T83.511A Infection and inflammatory reaction due to indwelling urethral catheter, initial encounter (principal); R53.1 Weakness; Z66 Do not resuscitate; F03.90 Unspecified dementia, unspecified severity, without behavioral disturbance, psychotic disturbance, mood disturbance, and anxiety; M79.7 Fibromyalgia; I10 Essential (primary) hypertension; E11.9 Type 2 diabetes mellitus without complications; Z79.4 Long term (current) use of insulin; E78.5 Hyperlipidemia, unspecified; H35.30 Unspecified macular degeneration; I34.1 Nonrheumatic mitral (valve) prolapse; G20 Parkinson's disease; Z96.653 Presence of artificial knee joint, bilateral; Z79.82 Long term (current) use of aspirin; R94.31 Abnormal electrocardiogram [ECG] [EKG]
CPT/HCPCS: 36415; 71046; 80053; 81001; 84484; 85025; 87077; 87086; 87088; 87186; 87804; 93005; 96374; 99284; J0696

== ENCOUNTER 2020-05-25 09:11 | Observation (INO) | payer MEDICARE, MEDICAID, SELFPAY ==
[2020-05-25] VITALS (18 sets, daily range): BP systolic 104–150; BP diastolic 46–85; PULSE 59–82; RESP 9–18; TEMP 36.1–36.4; O2SAT 95–97; BMI 31.0
--- NOTE | ~2020-05-25 | US_ITS ---
EXAMINATION: US carotid duplex BI DATE: 05/25/2020 15:28 INDICATION: Left upper extremity weakness. CVA. TECHNIQUE: Grayscale, color Doppler, and pulsed Doppler images of the cervical carotid arteries were obtained. The degree of vessel stenosis is placed in one of the following categories: normal, <50%, 5 0-69%, >=70% but less than near-occlusion, near-occlusion, or total occlusion. Note that percent sten osis relative to normal distal artery lumen diameter is indirectly measured from velocity measurement s as described by Azeem, et al. Radiology 2003; 229:340-346. Notes: Normal: Peak systolic velocity <125 centimeters/sec and no plaque <50%. Peak systolic velocity <125 ( EDV <40; ICA/CCA PSV ratio <2.0; used these factors only a tandem lesions or low cardiac output or co ntralateral disease) 50-69 %: PSV 125-230 (EDV 40-100; ratio 2-4) >= 70% but less than near occlusion: PSV greater than 230 (EDV > 100; ratio> 4.0) Near Occlusion: PSV that is variable; markedly narrowed lumen Occlusion: Absent flow on color/spectral Doppler and no lumen on madden scale. COMPARISON: None. FINDINGS: RIGHT: The right common carotid artery (CCA) peak systolic velocity (PSV) is 89 cm/s. The right internal car otid artery (ICA) PSV is 78 cm/s. The right ICA end-diastolic velocity (EDV) is 18 cm/s. The right IC A/CCA PSV ratio is 0.9. The external carotid artery (ECA) PSV is 83 cm/s. There is antegrade flow in the right vertebral artery. LEFT: The left CCA PSV is 108 cm/s. The left ICA PSV is 81 cm/s. The left ICA EDV is 16 cm/s. The left ICA/ CCA PSV ratio is 0.7. The ECA PSV is 106 cm/s. There is antegrade flow in the left vertebral artery. IMPRESSION: 1. Less than 50% stenosis in the right internal carotid artery by sonographic criteria. 2. Less than 50% stenosis in the left internal carotid artery by sonographic criteria. Reviewed, dictated and finalized at location A. IMPRESSION: 1. Less than 50% stenosis in the right internal carotid artery by sonographic c austin. 2. Less than 50% stenosis in the left internal carotid artery by sonographic norris flores.
--- NOTE | ~2020-05-25 | CT_ITS ---
EXAMINATION: CT brain wo con EXAM DATE: 05/25/2020 09:29 INDICATION: Left arm hemiparesis. Fall. Slurred speech. Stroke protocol. TECHNIQUE: Spiral CT of the head was performed without contrast. Axial, coronal and sagittal images were reviewed. The dose-length product (DLP) for this examination was 681.00 mGy-cm. The exposure w as tailored according to patient size, and iterative reconstruction (ASIR) was used as additional dos e reduction technique. Comparison is made to prior examination from 01/24/2020. FINDINGS: There is no acute intraparenchymal hemorrhage. No evidence of intraparenchymal brain mass lesion. No evidence of acute infarction. Please note that initial head CT has limited sensitivity f or small or acute infarctions. There is mild to moderate periventricular and subcortical hypodensity, nonspecific but probably related to small vessel ischemic disease. There is mild to moderate promi nence of the sulci and ventricles related to cerebral atrophy. There is intracranial carotid arteri osclerosis. There are no extra-axial collections. There is no mass effect or midline shift. Mignon t has had bilateral ocular lens surgery. Soft tissue is unremarkable. The visualized sinuses and ma stoid air cells are well aerated. There is no significant interval change. IMPRESSION: 1. No acute intracranial findings. 2. Chronic age related findings. As per stroke protocol, I called these results to emergency room, discussed with Emir Miller at 05/25/2020 09:32 CDT. Reviewed, dictated and finalized at location B. IMPRESSION: 1. No acute intracranial findings. 2. Chronic age related findings. As per stroke protocol, I called these results to emergency room, discussed wit h Robb Webster MD at 05/25/2020 09:32 CDT.
--- NOTE | ~2020-05-25 | XR_ITS ---
EXAMINATION: XR chest 1V portable EXAM DATE: 05/25/2020 09:44 INDICATION: Stroke symptoms. TECHNIQUE: Portable AP frontal chest x-ray was obtained. Comparison is made to prior examination from 02/08/20. FINDINGS: Low lung volume with chronic right hemidiaphragm elevation. Possible mild pulmonary edema. No confluent consolidation, pneumothorax or pleural effusion suspected. Cardiomediastinal silhouette is normal. Thoracolumbar fusion hardware. IMPRESSION: Indistinct reticulation, possible mild pulmonary edema without confluent consolidation. Reviewed, dictated and finalized at location B. IMPRESSION: Indistinct reticulation, possible mild pulmonary edema without con fluent consolidation.
--- NOTE | ~2020-05-25 | MR_ITS ---
EXAMINATION: MR brain/brain stem wo/w con EXAM DATE: 05/26/2020 09:10 INDICATION: Slurred speech. Left hemiparesis. TECHNIQUE: Magnetic resonance imaging (MRI) of the brain/brain stem obtained without contrast. Sagit qamar T1, axial diffusion, gradient echo (T2*), T1, T2, FLAIR sequences obtained. Patient was then inj ected with 17 cc intravenous Multihance contrast. Axial and coronal postcontrast T1 weighted sequence s obtained. Comparison is made to prior examination from 01/26/2020. FINDINGS: There are no areas of restricted diffusion to suggest acute infarction. There is no acute hemorrhage seen on the T2*, a hemosiderin sensitive sequence. No intraparenchymal brain mass lesion. There is mild periventricular and subcortical T2/FLAIR signal hyperintensity, nonspecific but probab ly related to small vessel ischemic disease (microangiopathy). There is moderate prominence of the sulci and ventricles related to cerebral atrophy. There are no extra-axial collections. Flow voids are seen in the cerebral arteries on the T2-weighted sequences consistent with their expected patenc y. Patient has had bilateral ocular lens surgery. Soft tissue is unremarkable. IMPRESSION: 1. No acute intracranial findings. 2. Chronic age related findings. Reviewed, dictated and finalized at location B.
--- NOTE | 2020-05-25 09:17 | ECG_ITS ---
Measurements Intervals [place] Rate: 69 P: 34 MS: 181 QRS: -45 QRSD: 82 T: 9 QT: 408 QTc: 437 Interpretive Statements SINUS RHYTHM POOR R WAVE PROGRESSION, CONSIDER ANTERIOR INFARCT INFERIOR INFARCT, AGE INDETERMINATE BASELINE WANDER- I, II, AVR, AVL, AVF ABNORMAL ECG Electronically Signed On 05-25-2020 10:27:13 CDT by Kashmir Don D.O.
[2020-05-25 09:33] LABS: Glucose Point of Care 118 (65-105)
[2020-05-25 09:41] LABS: Basophils Percent Auto 0.5 % (0.2-1.2); Eosinophils Absolute Auto 0.1 K/mm3 (0-0.3); Eosinophils Percent Auto 1.6 % (0-4.4); Hematocrit 43.9 % (37.0-47.0); Hemoglobin 13.7 g/dL (12.0-15.0); Immature Granulocyte Absolute 0.01 K/mm3 (0.00-0.031); Immature Granulocyte Percent A 0.2 % (0-0.5); Lymphocytes Absolute Auto 1.11 K/mm3 (0.9-3.2); Mean Corpuscular HGB Conc 31.2 g/dl (32-36); Mean Corpuscular Volume 96.3 fl (80-100); Monocytes Absolute Auto 0.5 K/mm3 (0.1-0.6); Monocytes Percent Auto 10.6 % (2.6-8.5); Neutrophils Absolute Auto 2.8 K/mm3 (1.3-6.7); Neutrophils Percent Auto 62.1 % (45.5-73.1); Platelet Count Result 106 k/mm3 (150-375); Red Blood Count 4.56 M/mm3 (4.2-5.4); Red Cell Distribution Width 13.2 % (11.5-14.5); White Blood Count 4.4 K/mm3 (4.5-10.0)
[2020-05-25 09:49] LABS: Prothrombin Time 13.3 Seconds (11.1-14.7)
[2020-05-25 09:50] LABS: Partial Thromboplastin Time 24.7 SECONDS (22.3-36.8)
[2020-05-25 09:51] LABS: Alanine Aminotransferase 6 U/L (4-35); Albumin Level 4.3 g/dL (3.5-5.1); Alkaline Phosphatase 81 U/L (38-126); Aspartate Amino Transferase 17 U/L (14-36); Bilirubin,Total 0.6 mg/dL (0.2-1.3); Blood Urea Nitrogen 21 mg/dL (7-17); Calcium 9.2 mg/dL (8.4-10.2); Carbon Dioxide 34 mmol/L (22-30); Chloride 101 mmol/L (98-107); Estimated Glomerular Filt Rate 54; Glucose 136 mg/dL (65-105); Potassium 3.9 mmol/L (3.4-5.0); Sodium 142 mmol/L (137-145)
[2020-05-25 10:02] LABS: Troponin I < 0.012 ng/mL (0.000-0.034)
[2020-05-25 10:07] LABS: Add Urine Microscopic? YES; Appearance Urine Cloudy (Clear); Bilirubin Urine Negative (Negative); Blood Urine Negative (Negative); Color Urine Yellow (Yellow); Glucose Urine UA Negative (Negative); Ketones Urine Negative (Negative); Leukocyte Esterase Ur 2+ LEU/UL (Negative); Nitrate Urine Negative (Negative); Protein Urine Negative (Negative); RBC Urine 0-2 /hpf (0-2); Specific Grav Ur 1.011 (1.001-1.035); Squamous Epithelial Cell Urine Rare /hpf (Few); WBC Urine 51-75 /hpf
--- NOTE | 2020-05-25 10:11 | ED.NEUROSD ---
HPI - Neuro Symptoms/Deficit General Chief Complaint: Suspected CVA Stated Complaint: FALL/?TIA/CVA Time Seen by Provider: 05/25/20 09:16 History of Present Illness HPI Narrative: Patient is a 79-year-old female who presents ER with concern for CVA. Patient was transferring from a wheelchair when she had a witnessed fall to the ground. No overt trauma. EMS called. Patient found to have difficulty speaking with left facial droop and paralysis of the left upper extremity. Accu-Chek was normal. Symptoms improving in route. At this time patient is alert and oriented x3 and only has mild left upper extremity drift. Related Data Home Medications Medication Instructions Recorded Confirmed Amitiza 24 mcg PO BID 01/24/20 05/25/20 Basaglar KwikPen U-100 Insulin 60 unit SUBCUT HS 01/24/20 05/25/20 Lactobacillus acidophilus 2,000 mmu cells PO BID 01/24/20 05/25/20 [Acidophilus] Myrbetriq 25 mg PO DAILY 01/24/20 05/25/20 Nuplazid 34 mg PO DAILY 01/24/20 05/25/20 Refresh Tears 1 drp OPHTHALMIC (EYE) QID 01/24/20 05/25/20 Restasis 1 drp OPHTHALMIC (EYE) Q12H 01/24/20 05/25/20 acetaminophen [Tylenol] 650 mg PO Q4H PRN 01/24/20 05/25/20 aspirin 81 mg PO DAILY 01/24/20 05/25/20 carbidopa-levodopa 3 tablet PO BID 01/24/20 05/25/20 cholecalciferol (vitamin D3) 2,000 unit PO DAILY 01/24/20 05/25/20 [Vitamin D3] clonazepam 0.5 mg PO TID 01/24/20 05/25/20 clonazepam 1 mg PO HS 01/24/20 05/25/20 duloxetine 30 mg PO DAILY 01/24/20 05/25/20 duloxetine 60 mg PO BID 01/24/20 05/25/20 estradiol [Estrace] 1 g VAGINAL 3XW 01/24/20 05/25/20 furosemide [Lasix] 20 mg PO DAILY 01/24/20 05/25/20 gabapentin 300 mg PO BID 01/24/20 05/25/20 gabapentin 800 mg PO HS 01/24/20 05/25/20 hydrocodone-acetaminophen 1 - 2 tablet PO Q6H PRN 01/24/20 05/25/20 insulin aspart U-100 [Novolog 8 unit SUBCUT TID 01/24/20 05/25/20 Flexpen U-100 Insulin] lisinopril-hydrochlorothiazide 1 tablet PO DAILY 01/24/20 05/25/20 omega 1-kvm-pxx-fish oil [Fish Oil] 2 cap PO BID 01/24/20 05/25/20 omeprazole 20 mg PO BID 01/24/20 05/25/20 polysaccharide iron complex 150 mg PO DAILY 01/24/20 05/25/20 [Poly-Iron] potassium chloride 10 meq PO DAILY 01/24/20 05/25/20 quetiapine [Seroquel] 50 mg PO HS 01/24/20 05/25/20 quetiapine [Seroquel] 200 mg PO HS 01/24/20 05/25/20 rivastigmine tartrate 4.5 mg PO BID 01/24/20 05/25/20 tizanidine [Zanaflex] 4 mg PO HS 01/24/20 05/25/20 carbidopa-levodopa 4 tablet PO HS 05/25/20 05/25/20 polyethylene glycol 3350 17 g PO DAILY PRN 05/25/20 05/25/20 Allergies Allergy/AdvReac Type Severity Reaction Status Date / Time No Known Allergies Allergy Verified 02/08/20 21:19 Review of Systems Review of Systems: All systems reviewed & are unremarkable except as noted in HPI and below Constitutional: Constitutional: Denies chills, Denies fever(s) and Denies weakness ENT: Denies nasal congestion and Denies sore throat Cardiovascular: Cardiovascular: Denies chest pain and Denies radiating jaw, neck or arm pain Respiratory: Respiratory: Denies cough and Denies dyspnea Neurologic: Denies headache(s), Reports focal weakness and Denies numbness PMFSH Social History Social History (Updated 05/25/20 @ 10:14 by Robb Webster MD) Social History: She is estranged from her 3 children. 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 No alcohol no illicit drugs. Is . Lifelong nonsmoker. Smoking status: Never smoker Alcohol intake: never Substance use: never Spiritual care concerns: No Agree to blood products: Yes Exam Narrative: Exam Narrative: GENERAL: Chronically ill-appearing, well-nourished, and in no acute distress. HEAD: Normocephalic, atraumatic. EYES: PERRL and EOMI. ENT: Moist mucous membranes CHEST: Clear to auscultation. No respiratory distress. HEART: Regular rate and rhythm. Normal peripheral pulses. ABDOMEN: Soft, nontender, nondistendeds. EXTREMITIES: Normal range of motion. No edema. SKIN: Warm, dry, no rash.
[2020-05-25 10:16] LABS: NT Pro B Type Natriuretic Pept 86 PG/ML (5-100)
--- NOTE | 2020-05-25 12:08 | ADMGEN ---
This patient, Christine Munoz, was admitted to 3 Medical Room 345-01. Patient/family oriented to hospital policies and general routines including ID bracelet, bed and alarms, visiting hours, pain management, procedures, bathroom and other care routines, personal items, smoking policy, room service/diet, and visiting hours. Valuables list has been completed. Information on how to activate the Rapid Response Team has been discussed. Patient/Family are encouraged to report perceived risks to care and to ask questions if they do not understand what they are told or what they should do.
--- NOTE | 2020-05-25 21:21 | PM.IMHP ---
H&P: HPI History of Present Illness Chief complaint: Left-sided weakness, slurred speech Narrative: Date and time of patient contact: 05/25/2020 at 9:30 p.m. Christine Munoz is a 79 year old female with a past medical history of dementia, Parkinson's disease and diabetes who presented to the ER via EMS from [facility] due to left facial droop and left upper extremity weakness after a fall. Per ER note, the patient was transferring to her wheelchair when she had a witnessed fall the ground. She had no signs of overt trauma. She was found have difficulty speaking and had left facial droop and processes of her left upper extremity. In the ER the patient was noted to have some left upper extremity drift. The patient's neurologic symptoms improved in route to the ER. However the time of my evaluation the patient would moan and state ?ouch to noxious stimuli. She would mumble words in response and fall back asleep immediately. The patient was reportedly alert oriented x3 on arrival to the medical floor and up to about an hour prior to my evaluation. The patient is now somnolent. She felt warm to touch but her repeat temperature was 98.6? axillary. She felt slightly diaphoretic and her glucose was 134. The patient would intermittently follow commands but would not wake long enough to answer questions. As a result, source of information is ER records and past medical records. Review of Systems Review of Systems: ROS unobtainable: Yes unobtainable due to mental status (Somnolent as discussed above) [facility] Past Medical History Medical History (Updated 05/25/20 @ 21:52 by Santa Painter DO) Constipation Degenerative disc disease Dementia Depression Diabetes mellitus with insulin therapy Diabetic peripheral neuropathy Stocking and glove Esophageal spasm Essential hypertension Fibromyalgia Frequent UTI History of VRE Hyperlipidemia Macular degeneration Mitral valve prolapse Osteoporosis Parkinsons Restless leg syndrome Urge urinary incontinence With subsequent urinary retention due to medications Vitamin D deficiency Surgical History Surgical History (Updated 05/25/20 @ 21:32 by Santa Painter DO) H/O cardiac catheterization December 1999 reported as clear H/O hemorrhoidectomy H/O rectocele repair 2002 H/O: hysterectomy History of back surgery 5 surgeries from from [id number] History of bilateral knee replacement History of bladder suspension procedure History of tonsillectomy Salivary gland enlargement Status post excision with chronic dry mouth Family History Family History (Updated 05/25/20 @ 21:37 by Santa Painter DO) Mother Hypertension Diabetes mellitus Morbid obesity Father Lung cancer Sibling Suicide Another brother who of suicide. Cancer Brother who of unspecified type of cancer Renal failure Sister of renal failure requiring hemodialysis Social History Social History (Updated 05/25/20 @ 21:37 by Santa Painter DO) Social History: Primary care physician: Dr. Noemy Parkinson Code status: DNR/DNI Smoking status: Never smoker Alcohol intake: never Substance use: never Living arrangements: [facility] Additional living arrangements comments: The patient is and estranged from her 3 children. She resides at [facility]. 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 Spiritual care concerns: No Agree to blood products: Yes Meds Home Medications and Allergies Home Medications Medication Instructions Recorded Confirmed Type Amitiza 24 mcg PO BID 01/24/20 05/25/20 History Ene Starks U-100 Insulin 60 unit SUBCUT HS 01/24/20 05/25/20 History Lactobacillus acidophilus 2,000 mmu cells PO BID 01/24/20 05/25/20 History [Acidophilus] Myrbetriq 25 mg PO DAILY 01/24/20 05/25/20 Histor
[2020-05-25 23:11] LABS: Glucose Point of Care 136 (65-105)
[2020-05-26] VITALS (9 sets, daily range): BP systolic 125–165; BP diastolic 70–81; PULSE 55–85; RESP 12–18; TEMP 36.1–37.1; O2SAT 97–100
[2020-05-26 00:38] LABS: Carboxyhemoglobin 0.2 % THb (0-2.0); Fractional Inspired Oxygen 21 %; Methemoglobin ABG 0.4 %THb (0-1.5); Oxygen Content ABG 16.6 %vol (16.0-22.0); Oxygen Saturation ABG 87.9 % (95.0-100.0); Oxyhemoglobin 86.9 % THb (90.0-100.0); PCO2 ABG 52.1 mmHg (35.0-45.0); PO2 ABG 54.3 mmHg (80.0-100.0); PO2 FiO2 Ratio Arterial Blood 2.59 %; Reduced Hemoglobin 12.5 %THb (0-5.0); Total Hemoglobin 13.6 g/dL (12.0-18.0); pH ABG 7.406 (7.350-7.450)
[2020-05-26 00:39] LABS: Device ROOM AIR; Modified Allen's Test Pass; Site Drawn RIGHT RADIAL
[2020-05-26 07:48] LABS: Glucose Point of Care 120 (65-105)
[2020-05-26] MEDS: ACIDOPHILUS/BULGARICUS CHEWABLE TABLET 1 TABLET PO ×2 (09:49→16:50)
[2020-05-26] MEDS: POLYSACCHARIDE IRON COMPLEX 150 MG CAPSULE PO (09:49)
[2020-05-26] MEDS: DULoxetine HCL 30 MG CAPSULE.DR PO (09:50)
[2020-05-26] MEDS: CARBIDOPA/LEVODOPA 12.5/50 MG TABLET 3 TABLET PO ×2 (09:50→16:50)
[2020-05-26] MEDS: CHOLECALCIFEROL 1,000 UNIT TABLET 2000 UNITS PO (09:50)
[2020-05-26] MEDS: LUBIPROSTONE 24 MCG CAPSULE PO ×2 (09:50→16:51)
[2020-05-26] MEDS: FUROSEMIDE 20 MG TABLET PO (09:50)
[2020-05-26] MEDS: RIVASTIGMINE TARTRATE 1.5 MG CAPSULE 4.5 MG PO ×2 (09:50→16:51)
[2020-05-26] MEDS: POTASSIUM CHLORIDE 10 MEQ TABLET.ER PO (09:51)
[2020-05-26] MEDS: lisinopriL 10 MG TABLET PO (09:51)
[2020-05-26] MEDS: hydroCHLOROthiazide 12.5 MG CAPSULE PO (09:51)
[2020-05-26] MEDS: PANTOPRAZOLE 40 MG TABLET PO ×2 (09:51→16:51)
[2020-05-26] MEDS: OMEGA 3 POLYUNSAT FATTY ACIDS 1 GM CAP 2 GM PO ×2 (09:51→16:51)
[2020-05-26] MEDS: ESTRADIOL VAGINAL CREAM 42.5 GM VAGINAL (09:52)
[2020-05-26] MEDS: ASPIRIN 81 MG CHEWABLE TABLET PO (09:53)
[2020-05-26] MEDS: INSULIN ASPART (*BKC) 100 UNITS/ML 8 UNITS SUB-Q ×3 (09:54→16:51)
[2020-05-26 11:48] LABS: Glucose Point of Care 267 (65-105)
[2020-05-26] MEDS: INSULIN ASPART (*BKC) 100 UNITS/ML SUB-Q (11:56)
[2020-05-26] MEDS: DULoxetine HCL 60 MG CAPSULE.DR PO ×2 (11:58→16:51)
[2020-05-26 16:33] LABS: Glucose Point of Care 97 (65-105)
--- NOTE | 2020-05-26 16:44 | PM.IMPN ---
Progress Note: A&P Assessment and Plan (1) Stroke-like symptoms: Code(s): R29.90 - Unspecified symptoms and signs involving the nervous system Status: Acute Assessment and Plan: Here for CVA r/o. The patient had an MRI in January 2020 which demonstrated no evidence of prior CVA; similar findings on this MRI this stay. Her carotid Dopplers this stay demonstrated less than 50% stenosis bilaterally. Symptoms possibly secondary to UTI vs polypharmacy or combination thereof Will slowly start reintroducing the patient's sedating and pain medications given her clinical improvement Will order PT/OT for evaluation Monitor closely Out of bed as tolerated (2) Acute UTI (urinary tract infection): Code(s): N39.0 - Urinary tract infection, site not specified Status: Acute Assessment and Plan: The patient does have a history of recurrent urinary tract infections in the past and has had episodes of urinary retention in the past associated with anti spasmodics. Her most recent urine culture in January grew out Klebsiella pneumonia. UCx this stay is growing gram negative bacilli. One does of Rocephin in the ER Given AMS/stroke like symptoms, will continue treatment with Rocephin q24 hours Tailor antibiotics to cultures Monitor closely If continued improvement, anticipate discharge back to [place] within the next couple of days (3) Diabetes mellitus: Code(s): E11.9 - Type 2 diabetes mellitus without complications Status: Acute Assessment and Plan: BGL reasonably controlled today. Will continue the patient's long-acting insulin at lowered dose as the patient has had decreased oral; consider continuing at home dose if BGL/PO intake improves The patient's home mealtime bolus insulin has been ordered. Moderate dose sliding scale insulin with Accu-Cheks a.c. HS and hypoglycemia protocol have been ordered. (4) Essential hypertension: Code(s): I10 - Essential (primary) hypertension Status: Acute Assessment and Plan: BP appears to be variable but overall reasonable; 120s sys this afternoon Continue home antihypertensives Monitor (5) Parkinsons: Code(s): G20 - Parkinson's disease Status: Acute Assessment and Plan: Will continue home medication Monitor PT/OT for evaluation, although patient uses [id number] for transfers at home Subjective Date/time seen: 05/26/20 16:44 Interval history: Patient is a 79 yo F with history of dementia, Parkinson's disease and diabetes among several other comorbid conditions who is here for CVA r/o and evaluation s/p fall while transferring to her wheelchair. Patient is A&O to self, month of , and hospital. She answers questions appropriately and is able to converse with somewhat. She has little complaints for me today noting that she if feeling much better today. Denies f/c/s, headaches, dizziness, lightheadedness, cp/palpitations, sob/cough, n/v/d/c, abd pain, dysuria, calf pain/swelling. Spoke with Nurse from [facility] who stated patient was attempting to transfer to the wheelchair herself falling to the ground while hitting the arm of the wheelchair. She states she normally uses [id number] for transfers, normally feeds herself and assists in dressing herself. She is usually A&Ox3. Of note, nursing staff noted that she was having some breathing issues the day of presentation and staff reported white lips . Review of Systems Review of Systems: All systems reviewed & are unremarkable except as noted in HPI and below Exam Narrative: Exam Narrative: Patient lying supine in bed at time of visit. Nursing is in room changing patient Const: General: cooperative, comfortable, no acute distress, well developed and alert Nutritional Appearance: well nourished
[2020-05-26] MEDS: QUEtiapine FUMARATE 25 MG TABLET 50 MG PO (20:12)
[2020-05-26] MEDS: QUEtiapine FUMARATE 100 MG TABLET 200 MG PO (20:12)
[2020-05-26] MEDS: CARBIDOPA/LEVODOPA 25/100 MG TABLET 4 TABLET PO (20:13)
[2020-05-26] MEDS: clonazePAM 0.5 MG TABLET 1 MG PO (20:13)
[2020-05-26] MEDS: INSULIN GLARGINE (*BKC) 100 UNITS/ML 50 UNITS SUB-Q (20:21)
[2020-05-26 20:24] LABS: Glucose Point of Care 142 (65-105)
[2020-05-27] VITALS (7 sets, daily range): BP systolic 132–168; BP diastolic 58–90; PULSE 59–93; RESP 14–18; TEMP 36.2–36.5; O2SAT 96–99
[2020-05-27 06:23] LABS: Hematocrit 41.4 % (37.0-47.0); Hemoglobin 13.1 g/dL (12.0-15.0); Mean Corpuscular HGB Conc 31.6 g/dl (32-36); Mean Corpuscular Volume 94.7 fl (80-100); Mean Platelet Volume 12.2 fl (7.4-10.4); Platelet Count Result 102 k/mm3 (150-375); Red Blood Count 4.37 M/mm3 (4.2-5.4); Red Cell Distribution Width 13.1 % (11.5-14.5); White Blood Count 6.3 K/mm3 (4.5-10.0)
[2020-05-27 06:38] LABS: Blood Urea Nitrogen 20 mg/dL (7-17); Calcium 9.2 mg/dL (8.4-10.2); Carbon Dioxide 30 mmol/L (22-30); Chloride 100 mmol/L (98-107); Estimated CRCL calculation 55 ml/min; Estimated Glomerular Filt Rate > 60; Glucose 136 mg/dL (65-105); Magnesium 1.6 mg/dL (1.6-2.3); Potassium 3.9 mmol/L (3.4-5.0); Sodium 137 mmol/L (137-145)
[2020-05-27 07:32] LABS: Glucose Point of Care 149 (65-105)
[2020-05-27] MEDS: POLYSACCHARIDE IRON COMPLEX 150 MG CAPSULE PO (08:14)
[2020-05-27] MEDS: CHOLECALCIFEROL 1,000 UNIT TABLET 2000 UNITS PO (08:14)
[2020-05-27] MEDS: hydroCHLOROthiazide 12.5 MG CAPSULE PO (08:15)
[2020-05-27] MEDS: OMEGA 3 POLYUNSAT FATTY ACIDS 1 GM CAP 2 GM PO ×2 (08:15→16:59)
[2020-05-27] MEDS: POTASSIUM CHLORIDE 10 MEQ TABLET.ER PO (08:15)
[2020-05-27] MEDS: DULoxetine HCL 30 MG CAPSULE.DR PO (08:15)
[2020-05-27] MEDS: CARBIDOPA/LEVODOPA 12.5/50 MG TABLET 3 TABLET PO ×2 (08:15→16:59)
[2020-05-27] MEDS: PANTOPRAZOLE 40 MG TABLET PO ×2 (08:15→16:59)
[2020-05-27] MEDS: lisinopriL 10 MG TABLET PO (08:15)
[2020-05-27] MEDS: LUBIPROSTONE 24 MCG CAPSULE PO ×2 (08:16→16:59)
[2020-05-27] MEDS: FUROSEMIDE 20 MG TABLET PO (08:16)
[2020-05-27] MEDS: RIVASTIGMINE TARTRATE 1.5 MG CAPSULE 4.5 MG PO ×2 (08:16→16:59)
[2020-05-27] MEDS: ACIDOPHILUS/BULGARICUS CHEWABLE TABLET 1 TABLET PO ×2 (08:16→16:59)
[2020-05-27] MEDS: ASPIRIN 81 MG CHEWABLE TABLET PO (08:16)
[2020-05-27] MEDS: INSULIN ASPART (*BKC) 100 UNITS/ML 8 UNITS SUB-Q ×3 (08:17→17:00)
[2020-05-27] MEDS: AMOXICILLIN/CLAVULANATE K 875-125 MG TAB 1 TABLET PO ×2 (10:28→20:20)
[2020-05-27 11:38] LABS: Glucose Point of Care 194 (65-105)
[2020-05-27] MEDS: DULoxetine HCL 60 MG CAPSULE.DR PO ×2 (11:39→16:59)
--- NOTE | 2020-05-27 12:26 | PM.IMPN ---
Progress Note: A&P Assessment and Plan (1) Stroke-like symptoms: Code(s): R29.90 - Unspecified symptoms and signs involving the nervous system Status: Acute Assessment and Plan: Here for CVA r/o. The patient had an MRI in January 2020 which demonstrated no evidence of prior CVA; similar findings on MRI of brain this stay. Her carotid Dopplers this stay demonstrated less than 50% stenosis bilaterally. Symptoms possibly secondary to UTI vs polypharmacy or combination thereof Will slowly start reintroducing the patient's sedating and pain medications given her clinical improvement. Resume gabapentin given neuropathic pain reported today Likely discharge today given clinical improvement; pending covid results Monitor closely Out of bed as tolerated (2) Acute UTI (urinary tract infection): Code(s): N39.0 - Urinary tract infection, site not specified Status: Acute Assessment and Plan: The patient does have a history of recurrent urinary tract infections in the past and has had episodes of urinary retention in the past associated with anti spasmodics. Her most recent urine culture in January grew out Klebsiella pneumonia. UCx this stay growing E. coli ESBL; sensitive to Augmentin. She does report dysuria and cloudy urine today Switched to PO augmentin today; will continue through 06/05 to complete a 10 day course given urine culture Anticipate discharge back to [facility] today given clinical improvement; pending covid testing (3) Diabetes mellitus: Code(s): E11.9 - Type 2 diabetes mellitus without complications Status: Acute Assessment and Plan: BGL reasonably controlled today. 100s today Will continue the patient's long-acting insulin at lowered dose as the patient has had decreased oral; Will likely resume home dose at discharge The patient's home mealtime bolus insulin has been ordered. Moderate dose sliding scale insulin with Accu-Cheks a.c. HS and hypoglycemia protocol have been ordered. (4) Essential hypertension: Code(s): I10 - Essential (primary) hypertension Status: Acute Assessment and Plan: BP appears to be variable but overall reasonable; 130s sys this morning Continue home antihypertensives Monitor (5) Parkinsons: Code(s): G20 - Parkinson's disease Status: Acute Assessment and Plan: Will continue home medication Monitor PT/OT following Subjective Date/time seen: 05/27/20 12:26 Interval history: Patient is a 79 yo F with history of dementia, Parkinson's disease and diabetes among several other comorbid conditions who is here for CVA r/o and evaluation s/p fall while transferring to her wheelchair. Patient states she is feeling much better today. She states her appetite is better today. Nursing reports improvement with therapy today. She reports black stools, however she takes a daily iron pill. No reports of signs of bleeding elsewhere. She does report to me dysuria and cloudy urine. She states her neuropathy is worse today. No other complaints at the moment. Denies f/c/s, headaches, dizziness, lightheadedness, cp/palpitations, sob/cough, n/v/d/c, abd pain, changes in BMs, calf pain/swelling. Review of Systems Review of Systems: All systems reviewed & are unremarkable except as noted in HPI and below Exam Narrative: Exam Narrative: Patient sitting upright in chair finishing lunch at time of visit Const: General: cooperative, comfortable, no acute distress, well developed and alert Nutritional Appearance: well nourished Orientation/consciousness: patient oriented x3 HENMT: Head: normocephalic and atraumatic General nose exam: Normal nares present Face and sinus: face symmetric Throat: tonsils normal and uvula midline Eyes: General: appearance normal, both eyes and all
[2020-05-27 16:29] LABS: Glucose Point of Care 164 (65-105)
[2020-05-27] MEDS: GABAPENTIN 300 MG CAPSULE PO (17:35)
[2020-05-27] MEDS: clonazePAM 0.5 MG TABLET 1 MG PO (20:19)
[2020-05-27] MEDS: QUEtiapine FUMARATE 25 MG TABLET 50 MG PO (20:21)
[2020-05-27] MEDS: CARBIDOPA/LEVODOPA 25/100 MG TABLET 4 TABLET PO (20:21)
[2020-05-27] MEDS: QUEtiapine FUMARATE 100 MG TABLET 200 MG PO (20:23)
[2020-05-27] MEDS: INSULIN GLARGINE (*BKC) 100 UNITS/ML 50 UNITS SUB-Q (20:23)
[2020-05-27 22:15] LABS: Glucose Point of Care 130 (65-105)
[2020-05-28 04:51] VITALS: BP 111/48; PULSE 71; RESP 14; TEMP 36.3; O2SAT 92
[2020-05-28 06:35] LABS: Hematocrit 39.1 % (37.0-47.0); Hemoglobin 12.6 g/dL (12.0-15.0); Mean Corpuscular HGB Conc 32.2 g/dl (32-36); Mean Corpuscular Hemoglobin 30.3 pg (26-34); Mean Platelet Volume 11.8 fl (7.4-10.4); Platelet Count Result 96 k/mm3 (150-375); Red Blood Count 4.16 M/mm3 (4.2-5.4); Red Cell Distribution Width 13.1 % (11.5-14.5); White Blood Count 6.3 K/mm3 (4.5-10.0)
[2020-05-28 06:41] LABS: Blood Urea Nitrogen 21 mg/dL (7-17); Calcium 8.7 mg/dL (8.4-10.2); Carbon Dioxide 31 mmol/L (22-30); Chloride 98 mmol/L (98-107); Estimated CRCL calculation 45 ml/min; Estimated Glomerular Filt Rate 54; Glucose 112 mg/dL (65-105); Magnesium 1.5 mg/dL (1.6-2.3); Potassium 3.5 mmol/L (3.4-5.0); Sodium 138 mmol/L (137-145)
[2020-05-28 08:02] LABS: Glucose Point of Care 106 (65-105)
[2020-05-28 09:20] LABS: Glucose Point of Care 111 (65-105)
[2020-05-28] MEDS: POTASSIUM CHLORIDE 20 MEQ TABLET 40 MEQ PO (09:54)
[2020-05-28] MEDS: OMEGA 3 POLYUNSAT FATTY ACIDS 1 GM CAP 2 GM PO (09:54)
[2020-05-28] MEDS: MAGNESIUM SULF 1 GM/D5W 100 ML 1 GM/100 ML BAG IVPB (09:55)
[2020-05-28] MEDS: ACIDOPHILUS/BULGARICUS CHEWABLE TABLET 1 TABLET PO (09:55)
[2020-05-28] MEDS: ASPIRIN 81 MG CHEWABLE TABLET PO (09:55)
[2020-05-28] MEDS: RIVASTIGMINE TARTRATE 1.5 MG CAPSULE 4.5 MG PO (09:55)
[2020-05-28] MEDS: CHOLECALCIFEROL 1,000 UNIT TABLET 2000 UNITS PO (09:55)
[2020-05-28] MEDS: AMOXICILLIN/CLAVULANATE K 875-125 MG TAB 1 TABLET PO (09:55)
[2020-05-28] MEDS: hydroCHLOROthiazide 12.5 MG CAPSULE PO (09:56)
[2020-05-28] MEDS: DULoxetine HCL 30 MG CAPSULE.DR PO (09:56)
[2020-05-28] MEDS: lisinopriL 10 MG TABLET PO (09:56)
[2020-05-28] MEDS: CARBIDOPA/LEVODOPA 12.5/50 MG TABLET 3 TABLET PO (09:56)
[2020-05-28] MEDS: POTASSIUM CHLORIDE 10 MEQ TABLET.ER PO (09:56)
[2020-05-28] MEDS: FUROSEMIDE 20 MG TABLET PO (09:57)
[2020-05-28] MEDS: POLYSACCHARIDE IRON COMPLEX 150 MG CAPSULE PO (09:57)
[2020-05-28] MEDS: LUBIPROSTONE 24 MCG CAPSULE PO (09:57)
[2020-05-28] MEDS: PANTOPRAZOLE 40 MG TABLET PO (09:57)
[2020-05-28] MEDS: ESTRADIOL VAGINAL CREAM 42.5 GM VAGINAL (09:58)
[2020-05-28] MEDS: INSULIN ASPART (*BKC) 100 UNITS/ML SUB-Q (09:59)
[2020-05-28] MEDS: GABAPENTIN 300 MG CAPSULE PO (10:05)
[2020-05-28 11:48] LABS: Glucose Point of Care 177 (65-105)
[2020-05-28] MEDS: INSULIN ASPART (*BKC) 100 UNITS/ML 8 UNITS SUB-Q (12:03)
[2020-05-28] MEDS: DULoxetine HCL 60 MG CAPSULE.DR PO (12:04)
[2020-05-28 13:33] LABS: SARS-CoV-2 RNA PCR Negative
[2020-05-28 14:00] VITALS: BP 123/51; PULSE 71; RESP 18; TEMP 35.8; O2SAT 98
--- NOTE | 2020-05-28 14:06 | PM.DS ---
DS: Admitting Diagnosis Admitting Diagnosis Admitting Diagnosis: Unspecified symptoms and signs involving the nervous system DS: Discharge Diagnosis Discharge Diagnosis (1) Stroke-like symptoms: Code(s): R29.90 - Unspecified symptoms and signs involving the nervous system Status: Acute Assessment and Plan: Here for CVA r/o. The patient had an MRI in January 2020 which demonstrated no evidence of prior CVA; similar findings on MRI of brain this stay. Her carotid Dopplers this stay demonstrated less than 50% stenosis bilaterally. Symptoms possibly secondary to UTI vs polypharmacy or combination thereof Will discharge on home meds with recs of reevaluating her medications Discharge back to [place] today given negative COVID tests today Monitor closely PT/OT during stay (2) Acute UTI (urinary tract infection): Code(s): N39.0 - Urinary tract infection, site not specified Status: Acute Assessment and Plan: The patient does have a history of recurrent urinary tract infections in the past and has had episodes of urinary retention in the past associated with anti spasmodics. Her most recent urine culture in January grew out Klebsiella pneumonia. UCx this stay growing E. coli ESBL; sensitive to Augmentin. She does report dysuria and cloudy urine today Switched to PO augmentin yesterday; will continue through 06/05 to complete a 10 day course given urine culture results Discharge back to [facility] today given clinical improvement; negative covid testing (3) Diabetes mellitus: Code(s): E11.9 - Type 2 diabetes mellitus without complications Status: Acute Assessment and Plan: BGL reasonably controlled today. 100s today Will continue the patient's home insulin regimen The patient's home mealtime bolus insulin has been ordered. Moderate dose sliding scale insulin with Accu-Cheks a.c. HS and hypoglycemia protocol have been ordered. (4) Essential hypertension: Code(s): I10 - Essential (primary) hypertension Status: Acute Assessment and Plan: BP appears to be variable but overall reasonable; 110sys this morning Continue home antihypertensives F/u with [place] physician (5) Parkinsons: Code(s): G20 - Parkinson's disease Status: Acute Assessment and Plan: Will continue home medication PT/OT following DS: Summary Hospital Course Reason for hospitalization: AMS, left-sided weakness, slurred speech Hospital Course: Patient is a 79 yo F with a past medical history of dementia, Parkinson's disease and diabetes who presented to the ER via EMS from on 05/25 due to left facial droop and left upper extremity weakness after a fall. Patient was transferring to her wheelchair without assistance when she had a witnessed fall onto the wheelchair, and then ground. While in the ED, Head CT was unremarkable for acute intracranial process, however, she was noted to have UA suspicious for UTI and CVA was still of concern; brain MRI ordered from the ED. Patient admitted under this setting. Please see H&P for further details. Presenting VS: Temp Pulse Resp BP 97.4 F L 70 15 131/53 L 05/25/20 09:20 05/25/20 09:20 05/25/20 09:20 05/25/20 09:20 Sat 95% on RA Presenting Pertinent labs: UA showed cloudy urine, 2.0 urobilinogen, 2+ leuk est, 51-75 WBC, 3-4 hyaline casts. ABG on RA showed normal pH, pCO2 52.1, pO2 54.3, HCO3 32.0, sat 87.9%, reduced hemoglobin 12.5. COVID testing negative (to return to ). CBC, coag, ABG, chemistry, UA otherwise unremarkable Micro: UCx grew E. coli ESBL susceptible to Augmentin Imaging: Head CT 05/25/20 09:30 IMPRESSION: 1. No acute intracranial findings. 2. Chronic age related findings. As per stroke protocol, I called these results to emergency room, discussed with Robb Barber
== END 2020-05-28 16:35 ==
LOC: ANHED 09:37 → ANH3MED 11:36
PROVIDERS: Internal Medicine; Admitting Provider Internal Medicine; Emergency Provider Emergency Medicine; PCP Family Medicine; Visit Provider Physician Assistant
DX: N39.0 Urinary tract infection, site not specified (principal); B96.20 Unspecified Escherichia coli [E. coli] as the cause of diseases classified elsewhere; R41.82 Altered mental status, unspecified; R29.810 Facial weakness; G83.24 Monoplegia of upper limb affecting left nondominant side; I10 Essential (primary) hypertension; E11.42 Type 2 diabetes mellitus with diabetic polyneuropathy; G20 Parkinson's disease; F02.80 Dementia in other diseases classified elsewhere, unspecified severity, without behavioral disturbance, psychotic disturbance, mood disturbance, and anxiety; E78.5 Hyperlipidemia, unspecified; Z11.59 Encounter for screening for other viral diseases; Z66 Do not resuscitate; W18.30XA Fall on same level, unspecified, initial encounter; Z79.4 Long term (current) use of insulin; Z79.899 Other long term (current) drug therapy; Z87.440 Personal history of urinary (tract) infections; Z96.653 Presence of artificial knee joint, bilateral
CPT/HCPCS: 36415; 36600; 51701; 70450; 70553; 71045; 80048; 80053; 81001; 82375; 82805; 83050; 83735; 83880; 84484; 85025; 85027; 85055; 85610; 85730; 87077; 87086; 87088; 87186; 87635; 93005; 93880; 96365; 96367; 97110; 97161; 97165; 97530; 97535; 99285; A9270; C9803; G0378; J0696; J1815; J3475; U0003

== ENCOUNTER 2020-10-07 06:16 | Emergency (ER) | payer MEDICARE, MEDICAID, SELFPAY ==
--- NOTE | ~2020-10-07 | XR_ITS ---
EXAMINATION: XR chest 1V portable EXAM DATE: 10/07/2020 06:59 INDICATION: Shortness of breath. TECHNIQUE: Portable AP frontal chest x-ray was obtained. Comparison is made to prior examination from 05/25/2020, 02/08/2020. FINDINGS: There is moderate amount of bilateral edema or infection. Please clinically correlate. Low lung volume which is a chronic finding. Thoracolumbar Dickson rods. The cardiomediastinal silhouet te is prominent but magnified on this AP technique. There is no pneumothorax suspected. There are no pleural effusions. IMPRESSION: Moderate amount of bilateral pneumonia or edema. Reviewed, dictated and finalized at location A. SALES CLERK
[2020-10-07 06:12] VITALS: BP 146/109; PULSE 91; RESP 24; TEMP 36.3; O2SAT 83
--- NOTE | 2020-10-07 06:45 | ED.SOB ---
HPI - SOB/Dyspnea General Chief Complaint: Shortness of Breath/Dyspnea Stated Complaint: difficulty breathing Time Seen by Provider: 10/07/20 06:38 History of Present Illness HPI Narrative: Patient is a 80-year-old female who presents the ER with shortness of breath from her group home. Patient is awake and only somewhat alert. She is not oriented. She cannot communicate at this time. Patient was found to be hypoxic in the 40s on room air at her group home. EMS arrived and placed her on nonrebreather which brought her back up in the high 80s. Patient was diagnosed with COVID-19 on 09/24/2020. Related Data Home Medications Medication Instructions Recorded Confirmed Amitiza 24 mcg PO BID 01/24/20 05/25/20 Basaglar KwikPen U-100 Insulin 60 unit SUBCUT HS 01/24/20 05/25/20 Lactobacillus acidophilus 2,000 mmu cells PO BID 01/24/20 05/25/20 [Acidophilus] Myrbetriq 25 mg PO DAILY 01/24/20 05/25/20 Nuplazid 34 mg PO DAILY 01/24/20 05/25/20 Refresh Tears 1 drp OPHTHALMIC (EYE) QID 01/24/20 05/25/20 Restasis 1 drp OPHTHALMIC (EYE) Q12H 01/24/20 05/25/20 acetaminophen [Tylenol] 650 mg PO Q4H PRN 01/24/20 05/25/20 aspirin 81 mg PO DAILY 01/24/20 05/25/20 carbidopa-levodopa 3 tablet PO BID 01/24/20 05/25/20 cholecalciferol (vitamin D3) 2,000 unit PO DAILY 01/24/20 05/25/20 [Vitamin D3] duloxetine 30 mg PO DAILY 01/24/20 05/25/20 duloxetine 60 mg PO BID 01/24/20 05/25/20 estradiol [Estrace] 1 g VAGINAL 3XW 01/24/20 05/25/20 furosemide [Lasix] 20 mg PO DAILY 01/24/20 05/25/20 gabapentin 300 mg PO BID 01/24/20 05/25/20 gabapentin 800 mg PO HS 01/24/20 05/25/20 insulin aspart U-100 [Novolog 8 unit SUBCUT TID 01/24/20 05/25/20 Flexpen U-100 Insulin] lisinopril-hydrochlorothiazide 1 tablet PO DAILY 01/24/20 05/25/20 omega 2-knl-ztd-fish oil [Fish Oil] 2 cap PO BID 01/24/20 05/25/20 omeprazole 20 mg PO BID 01/24/20 05/25/20 polysaccharide iron complex 150 mg PO DAILY 01/24/20 05/25/20 [Poly-Iron] potassium chloride 10 meq PO DAILY 01/24/20 05/25/20 quetiapine [Seroquel] 50 mg PO HS 01/24/20 05/25/20 quetiapine [Seroquel] 200 mg PO HS 01/24/20 05/25/20 rivastigmine tartrate 4.5 mg PO BID 01/24/20 05/25/20 tizanidine [Zanaflex] 4 mg PO HS 01/24/20 05/25/20 carbidopa-levodopa 4 tablet PO HS 05/25/20 05/25/20 polyethylene glycol 3350 17 g PO DAILY PRN 05/25/20 05/25/20 Allergies Allergy/AdvReac Type Severity Reaction Status Date / Time No Known Allergies Allergy Verified 02/08/20 21:19 Review of Systems Review of Systems: ROS unobtainable: Yes unobtainable due to medical condition [facility] Past Medical History Medical History (Updated 10/08/20 @ 04:31 by Robb Webster MD) Constipation Degenerative disc disease Dementia Depression Diabetes mellitus with insulin therapy Diabetic peripheral neuropathy Stocking and glove Esophageal spasm Essential hypertension Fibromyalgia Frequent UTI History of VRE Hyperlipidemia Macular degeneration Mitral valve prolapse Osteoporosis Parkinsons Restless leg syndrome Urge urinary incontinence With subsequent urinary retention due to medications Vitamin D deficiency Surgical History Surgical History (Updated 05/25/20 @ 21:32 by Santa Painter DO) H/O cardiac catheterization December 1999 reported as clear H/O hemorrhoidectomy H/O rectocele repair 2002 H/O: hysterectomy History of back surgery 5 surgeries from from [id number] History of bilateral knee replacement History of bladder suspension procedure History of tonsillectomy Salivary gland enlargement Status post excision with chronic dry mouth Family History Family History (Updated 05/25/20 @ 21:37 by Santa Painter DO) Mother Hypertension Diabetes mellitus Morbid obesity Father Lung cancer Sibling Suicide Another brother who of suicide. Cancer Brother who of unspecified type of cancer Renal failure Sister of renal failure requiring hemodialysis Quan
[2020-10-07 06:50] VITALS: BP 168/106; PULSE 108; RESP 20; O2SAT 96
[2020-10-07 06:53] LABS: Basophils Percent Auto 0.1 % (0.2-1.2); Hematocrit 46.4 % (37.0-47.0); Hemoglobin 15.1 g/dL (12.0-15.0); Immature Granulocyte Absolute 0.11 K/mm3 (0.00-0.031); Immature Granulocyte Percent A 0.8 % (0-0.5); Immature Platelet Fraction Pct 15.8 % (0.9-11.2); Lymphocytes Absolute Auto 0.57 K/mm3 (0.9-3.2); Lymphocytes Percent Auto 4.2 % (18.3-44.2); Mean Corpuscular HGB Conc 32.5 g/dl (32-36); Mean Corpuscular Hemoglobin 29.8 pg (26-34); Mean Corpuscular Volume 91.5 fl (80-100); Mean Platelet Volume 13.6 fl (7.4-10.4); Monocytes Percent Auto 7.4 % (2.6-8.5); Neutrophils Absolute Auto 11.7 K/mm3 (1.3-6.7); Neutrophils Percent Auto 87.5 % (45.5-73.1); Platelet Count Result 69 k/mm3 (150-375); Red Blood Count 5.07 M/mm3 (4.2-5.4); Red Cell Distribution Width 12.6 % (11.5-14.5); White Blood Count 13.4 K/mm3 (4.5-10.0)
[2020-10-07 07:01] VITALS: BP 133/45; PULSE 85; RESP 41; O2SAT 90
[2020-10-07 07:03] LABS: Alanine Aminotransferase 15 U/L (4-35); Albumin Level 4.3 g/dL (3.5-5.1); Alkaline Phosphatase 93 U/L (38-126); Anion Gap 13 mmol/L (8-16); Aspartate Amino Transferase 38 U/L (14-36); Bilirubin,Total 1.3 mg/dL (0.2-1.3); Blood Urea Nitrogen 64 mg/dL (7-17); Calcium 9.4 mg/dL (8.4-10.2); Carbon Dioxide 32 mmol/L (22-30); Chloride 97 mmol/L (98-107); Estimated CRCL calculation 31 ml/min; Estimated Glomerular Filt Rate 34; Glucose 160 mg/dL (65-105); Lactic Acid Reflex 4.2 mmol/L (0.7-2.1); Potassium 5.4 mmol/L (3.4-5.0); Sodium 142 mmol/L (137-145)
[2020-10-07] MEDS: LORazepam INJ (*CRX) 2 MG/ML VIAL 0.5 MG IV PUSH (07:04)
[2020-10-07 07:05] LABS: CRP 8.5 mg/dL (<1.0)
[2020-10-07 07:16] VITALS: BP 121/38; PULSE 86; RESP 43; O2SAT 85
[2020-10-07 07:31] VITALS: BP 112/43; PULSE 84; RESP 40; O2SAT 86
[2020-10-07 08:17] VITALS: BP 134/96; PULSE 103; RESP 29; O2SAT 84
--- NOTE | 2020-10-07 08:35 | PC.NURSE ---
0825-SPOKE WITH BRIAN SWANSON-PERSON TO NOTIFY AND INFORMED HER PT WOULD BE RETURNING TO [facility] WITH COMFORT CARE. BRIAN STATED SHE UNDERSTOOD AND THANKED THIS [employer]AT FOR LETTING HER KNOW WHAY WAS HAPPENING.
--- NOTE | 2020-10-07 08:36 | PC.NURSE ---
called report to Miroslava at [facility]
[2020-10-07 09:49] LABS: Reflex Lactic Acid Yes or No Add Lactic
== END 2020-10-07 09:17 ==
LOC: ANHED 07:09
PROVIDERS: Emergency Provider Emergency Medicine; PCP Family Medicine
DX: U07.1 COVID-19 (principal); R09.02 Hypoxemia; F03.90 Unspecified dementia, unspecified severity, without behavioral disturbance, psychotic disturbance, mood disturbance, and anxiety; E11.42 Type 2 diabetes mellitus with diabetic polyneuropathy; I10 Essential (primary) hypertension; M79.7 Fibromyalgia; Z87.440 Personal history of urinary (tract) infections; E78.5 Hyperlipidemia, unspecified; M81.0 Age-related osteoporosis without current pathological fracture; G20 Parkinson's disease; G25.81 Restless legs syndrome; E55.9 Vitamin D deficiency, unspecified; Z96.653 Presence of artificial knee joint, bilateral; Z66 Do not resuscitate; Z79.4 Long term (current) use of insulin
CPT/HCPCS: 36415; 71045; 80053; 83605; 85025; 85055; 86140; 96374; 99284; J2060